=== PATIENT | male | born 1945 | race Caucasian/White ===

== ENCOUNTER 2016-11-03 04:55 | Inpatient (IN) ==
[2016-11-03] MEDS ORDERED: MAGNESIUM SULF RIDER 2 GM in PREMIX 1 EACH IV PRN ×2 (05:15→07:57)
[2016-11-03] MEDS ORDERED: MORPHINE 2 MG/1 ML SYRINGE IV PRN (05:15)
[2016-11-03] MEDS ORDERED: ONDANSETRON 4 MG/2 ML VIAL IV PRN (05:15)
[2016-11-03] MEDS ORDERED: MAGNESIUM SULF RIDER 4 GM in PREMIX 1 EACH IV PRN (05:15)
--- NOTE | 2016-11-03 05:22 | Emergency Department Note ---
I, Kasandra Mccarthy, am scribing for, and in the presence of, Tasha Dalton DO 05: 17. I, Tasha Dalton DO, personally performed the services described in this documentation, ascribed by Kasnadra Mccarthy in my presence, and it is both accurate and complete 520 . Arrival - Arrival Chief Complaint: Chest Pain Stated Complaint: chest pain ED Nursing Triage Note: C/C pt was having chest pain and went to [facility] for eval. Lab results pt had elevated troponin. No ST evelvation. Pt has not had any chest pain since being seen at [facility]. Pt had heart cath done and stent place 1 year ago. Pt was given Lovenox 100mg. Mode of Arrival: Stretcher Limitations: No Limitations Source: Patient - History of Present Illness HPI Narrative: Pt is a 71 y/o male that was transferred from [facility] for further evaluation of chest pain and an elevated troponin that happened around 10pm yesterday. Pt reports chest pain resolved after about 30 minutes of arriving at ED. He states chest pain came on about 8:30pm yesterday. Pt reports he has had similar previous issues where he went in for abdominal pain and ended up having to have a heart catherization with heart stent being placed in [place] [address] Kasper. He reports pain is similar but higher this time in the middle of his chest. Pt denies having a CT done or given nitroglycerin and prior facility but did have a chest X-ray and an EKG. Pt states chest pain was not pain just discomfort. No other complaints/pain in ED. Onset (ago): hour(s) Consistency: constant Severity: mild Severity scale (1-10): 2 Quality: other Allergies/Adverse Reactions: Allergies Allergy/AdvReac Type Severity Reaction Status Date / Time No Known Allergies Allergy Verified 11/03/16 05:11 Home Medications: Home Medications Medication Instructions Recorded Confirmed Type Aspirin [Ecotrin] 325 mg PO DAILY 11/04/15 11/04/15 History Atorvastatin [Lipitor] 20 mg PO BEDTIME 11/04/15 11/04/15 History Cyclobenzaprine [Flexeril] 10 mg PO TID PRN 11/04/15 11/04/15 History Glimepiride 4 mg PO DAILY 11/04/15 11/04/15 History Lisinopril 30 mg PO DAILY 11/04/15 11/04/15 History Pantoprazole Sodium 40 mg PO BID 11/04/15 11/04/15 History Pioglitazone [Actos] 15 mg PO DAILY 11/04/15 11/04/15 History Verapamil HCl [Verapamil ER Tab] 240 mg PO DAILY 11/04/15 11/04/15 History Clopidogrel [Plavix] 75 mg PO DAILY #90 tablet 11/05/15 Rx Review of System - Review of System 12 point system: reviewed and no additional remarkable complaints except as stated - Review of System Constitutional: Absent: chills, fever Respiratory: Absent: respiratory distress Cardiovascular: Present: chest pain Gastrointestinal: Present: abdominal pain. Absent: nausea, vomiting Musculoskeletal: Absent: arm pain, back pain, leg pain, neck pain Neurological: Absent: headache, numbness, confusion Psychiatric: Absent: anxiety Medical,Surgical,& Family Hx - Medical History Cardio: History of: Cerebrovascular Disease, CAD, Hypertension, Cardiovascular Problems (Stent 2015) No history of: CHF, [place] Psychological: History of: Anxiety Disorders Neurology: History of: Cerebrovascular Accident (2001 CVA) No history of: Seizures HEENT: History of: Eye Problem (glasses) Endocrine: History of: Diabetes Mellitus (NIDDM), Dyslipidemia No history of: Thyroid Disorder Respiratory: No history of: Asthma, COPD, Obstructive Sleep Apnea, Pulmonary Embolism Gastrointestinal: History of: GERD, GI Problems ("irritable bowel") No history of: Gastrointestinal Bleed Musculoskeletal: History of: Musculoskeletal Problems (arthritis) No history of: Amputation - Surgical History Cardiac Surgeries: Sugical HX of: Cardiac Catheterization (Stent 2015) Patient Denies: Cardiac Surgery HEENT Surgeries: Surgical HX of: Tonsilectomy & Adenoidectomy Abdominal Surgeries: Surgical HX of: Colonoscopy, EGD - Family History Family History: Reports;: Family Hypertension - Social History Smoking Status: Former smoker Frequency of Alcohol Use: None Type of Drug Use: None Exam Vital Signs: Vital Signs Temperature 97.1 F L 11/03/16 04:55 Pulse Rate 93 H 11/03/16 04:55 Respiratory Rate 17 11/03/16 04:55 Blood Pressure 145/79 11/03/16 04:55 O2 Sat by Pulse Oximetry 96 11/03/16 04:55 - General General appearance: alert, in no apparent distress, other (several teeth missing ) - Head Head exam: Present: atraumatic, normocephalic - Eye Eye exam: Present: PERRL, EOMI - ENT ENT exam: Present: mucous membranes moist. Absent: mucous membranes dry - Neck Neck exam: Present: full ROM. Absent: tenderness - Chest Chest inspection: Present: symmetric chest wall rise. Absent: tenderness - Respiratory Respiratory exam: Present: normal lung sounds bilaterally. Absent: respiratory distress - Cardiovascular Cardiovascular exam: Present: regular rate, normal rhythm, normal heart sounds - Abdominal Exam Abdominal exam: Present: soft, distention. Absent: tenderness - Extremities Exam Extremities exam: Present: full ROM. Absent: tenderness - Back Exam Back exam: Present: full ROM. Absent: tenderness - Neurological Exam Neurological exam: Present: alert, oriented X3, CN II-XII intact. Absent: motor sensory deficit - Psychiatric Psychiatric exam: Present: normal affect, normal mood - Skin Skin exam: Present: warm, dry Course Course Narrative: pt to be admitted to Dr Mckeon who accepts pt. Disposition Clinical Impression: Chest pain, Elevated troponin Case discussed with: patient Disposition: Still a Patient Condition: Stable Time of Disposition: 05:21
[2016-11-03] MEDS ORDERED: ASPIRIN CHEW 81 MG TABLET PO ONE (07:52)
[2016-11-03] MEDS ORDERED: METOPROLOL SUCCINATE XL 25 MG TABLET PO ONE (07:56)
[2016-11-03] MEDS ORDERED: POTASSIUM CHLORIDE RIDER 10 MEQ in PREMIX 1 EACH IV PRN (07:57)
[2016-11-03] MEDS: SODIUM CHLORIDE 0.9% 1,000 ML IV SCH ×2 (08:00→13:37)
--- NOTE | 2016-11-03 08:14 | Cardiology History & Physical ---
Assessment and Plan - Time spent with patient Time spent with patient: Greater than 30 minutes (1) NSTEMI (non-ST elevated myocardial infarction) Status: Acute Assessment and plan: See plan of care below [facility] Current Visit: Yes (2) CAD (coronary artery disease) Status: Chronic Assessment and plan: See plan of care below [facility] Current Visit: Yes Qualifiers: Coronary Disease-Associated Artery/Lesion type: [place] artery (3) S/P PCI mid-LAD Status: Chronic Assessment and plan: See plan of care below [facility] Current Visit: Yes (4) Hypertension Status: Chronic Assessment and plan: See plan of care below [facility] Current Visit: Yes (5) Dyslipidemia Status: Chronic Assessment and plan: See plan of care below [facility] Current Visit: Yes (6) Diabetes Status: Chronic Assessment and plan: See plan of care below [facility] Current Visit: Yes (7) Obesity (BMI 30.0-34.9) Status: Chronic Assessment and plan: See plan of care below [facility] Current Visit: Yes (8) Sleep disorder Status: Chronic Assessment and plan: See plan of care below [facility] Current Visit: Yes (9) Left carotid bruit Status: Chronic Assessment and plan: See plan of care below [facility] Current Visit: Yes History of Present Illness Chief complaint: NSTEMI History of present illness: Mr. Adria Self is a 71 year old male previously seen by Dr. Kasper. Risk factors include: age, known CAD, hypertension, hyperlipidemia, diabetes, Class I obesity, sedentary lifestyle. Patient required PCI to the mid LAD lesion with a drug-eluting stent 11/04/2015. He did not follow-up with Dr. Kasper in clinic but tells me he continues to take low-dose aspirin and Plavix daily. Last evening, around 830 p.m., patient began to experience a cramping sensation in his lower chest upper mid abdominal area. This waxed and waned for approximately one hour. Around 10 p.m., the discomfort would not go away. He felt as if he should be evaluated in the local emergency department ([facility]). He was evaluated and found to have marginally elevated troponin initially, abnormal EKG. He was transferred to our facility where he has been housed on our telemetry unit overnight. His troponin has elevated at 2.0 overnight. He is currently chest pain-free. He received 100 mg subcutaneous Lovenox at [facility] ER. He took his low-dose aspirin yesterday morning and Plavix yesterday morning. Patient reports that since he had his stent he felt relatively well. The past several months, he has experienced mild abdominal discomfort similar to what he felt when he required stenting. This is occurred 2 or 3 times and was brief lasting only a few seconds. Until last evening, he had not had this severe a discomfort. He can identify no aggravating factors nor any alleviating factors. He rates the discomfort as a 7 on a scale of 1- 10. He did have mild nausea associated with the discomfort last night but no diaphoresis or shortness of breath. The discomfort seemed to be contained to the lower chest upper abdominal area without radiation. I have discussed the case with Dr. Mckeon. Patient will be given to 81 mg chewable aspirins. Give her low-dose beta rosas. I'll also add Imdur this morning. We will get him ready for cardiac catheterization this morning. ASSESSMENT/PLAN: 1. NSTEMI - patient is being treated accordingly the usual protocol. He is being prepped for cardiac catheterization to be performed Dr. Ortiz Mckeon. This morning. Patient is chest pain-free at this time. 2. CAD - history of known coronary artery disease status post cardiac catheterization 11/04/[address] Kasper requiring PCI to mid LAD with LYNSEY. 3. HYPERTENSION - we'll add low-dose beta rosas this morning and incorporate his home meds. He does take lisinopril at home but given the fact that he is can have heart catheterization this morning, we'll hold Gil inhibitors. 4. DYSLIPIDEMIA - continue lipid-lowering agent. Lipid profile this morning as he is nothing by mouth. 5. DIABETES -we will cover with sliding scale insulin and have diabetic educators speak with him prior to discharge 6. ACUTE RENAL INSUFFICIENCY - creatinine was 1.5 at [facility]. This morning it has normalized. However, I will add Mucomyst orally and sodium bicarbonate infusion prior to heart cath 7. CLASS 1 OBESITY - lifestyle modifications have been discussed and continued reinforcement during hospitalization 8. SLEEP DISORDER - Class III Mallampati airway with greater than 44cm neck circumference, loud snoring and possible air hunger. Consult sleep medicine. 9. CAROTID BRUIT - carotid US this morning. Home Medications Medication Instructions Recorded Confirmed Type Aspirin [Ecotrin] 325 mg PO DAILY 11/04/15 11/03/16 History Atorvastatin [Lipitor] 20 mg PO BEDTIME 11/04/15 11/03/16 History Cyclobenzaprine [Flexeril] 10 mg PO TID PRN 11/04/15 11/03/16 History Glimepiride 4 mg PO DAILY 11/04/15 11/03/16 History Lisinopril 30 mg PO DAILY 11/04/15 11/03/16 History Pantoprazole Sodium 40 mg PO BID 11/04/15 11/03/16 History Pioglitazone [Actos] 15 mg PO DAILY 11/04/15 11/03/16 History Verapamil HCl [Verapamil ER Tab] 240 mg PO DAILY 11/04/15 11/03/16 History Clopidogrel [Plavix] 75 mg PO DAILY #90 tablet 11/05/15 11/03/16 Rx Allergies Allergy/AdvReac Type Severity Reaction Status Date / Time No Known Allergies Allergy Verified 11/03/16 05:11 Review of systems: REVIEW OF SYSTEMS: - Constitutional Constitutional: Present: Fatigue. Loud snoring, air hunger often been sleeping Absent: syncope, anorexia, night sweats - EENT Eyes: Absent: blurry vision, loss of vision, diplopia Ears: Absent: decreased hearing, ear pain, ear discharge - Cardiovascular Cardiovascular: Present: chest pain with exertion and at rest. Denies dyspnea on exertion, edema, palpitations. Absent: chest pain with deep breath, claudication, - Respiratory Respiratory: Denies cough. Absent: wheezing, hemoptysis, change in phlegm color - Gastrointestinal Gastrointestinal: Present: History of irritable bowel syndrome by report the currently not having difficulty with constipation or diarrhea. See HPI Absent: hematemesis, hematochezia, melena, change in bowel habits, nausea - Genitourinary Genitourinary: Absent: difficulty urinating, dysuria, urinary hesitancy, flank pain - Musculoskeletal Musculoskeletal: Present: back pain Absent: joint swelling, muscle cramps, muscle weakness - Neurological Neurological: Present: normal gait without frequent falls. Absent: dizziness, hemiparesis - Psychiatric Psychiatric: Absent: anxiety, depression, difficulty concentrating - Endocrine Endocrine: Present: fatigue. Absent: cold intolerance, heat intolerance, polyuria, polyphagia, polydipsia - Hematologic/Lymphatic Hematologic/Lymphatic: Present: easy bruising. Absent: easy bleeding, easy bruisability -Integumentary Integumentary: Absent: lesions, rashes, skin breakdown Medical,Surgical,& Family Hx - Medical History Cardio: History of: Cerebrovascular Disease, CAD, Hypertension, Cardiovascular Problems (Stent 2015) No history of: CHF, [place] Psychological: History of: Anxiety Disorders Neurology: History of: Cerebrovascular Accident (2001 CVA) No history of: Seizures HEENT: History of: Eye Problem (glasses) Endocrine: History of: Diabetes Mellitus (NIDDM), Dyslipidemia No history of: Thyroid Disorder Respiratory: No history of: Asthma, COPD, Obstructive Sleep Apnea, Pulmonary Embolism Gastrointestinal: History of: Esophageal Varices, GERD, GI Problems ("irritable bowel") No history of: Gastrointestinal Bleed Musculoskeletal: History of: Musculoskeletal Problems (arthritis) No history of: Amputation - Surgical History Cardiac Surgeries: Sugical HX of: Cardiac Catheterization (Stent 2015) Patient Denies: Cardiac Surgery Neurologic Surgeries: Patient denies: Neurologic Surgery HEENT Surgeries: Surgical HX of: Tonsilectomy & Adenoidectomy Abdominal Surgeries: Surgical HX of: Colonoscopy, EGD Reproductive Surgeries: Patient denies;: Genitourinary Surgery - Family History Family History: Reports;: Family Hypertension - Social History Smoking Status: Former smoker Have you smoked in the last 12 months: No Frequency of Alcohol Use: None Type of Drug Use: None Marital Status: Single Lives With:: Spouse Functional capacity: independent ambulation Cardiology Physical Exam - Constitutional Vitals: Vital Signs Temp Pulse Resp BP Pulse Ox 97.8 F 79 20 126/83 96 11/03/16 07:37 11/03/16 07:37 11/03/16 07:37 11/03/16 07:37 11/03/16 07:37 Intake and Output 11/02/16 11/03/16 11/03/16 23:59 07:59 15:59 Intake Total 0 / 0 Balance 0 / 0 Intake: Oral 0 / 0 Other: Weight 100.386 kg Patient Weight 11/03/16 23:59 Weight 100.386 kg Exam: General: Appears well with no apparent distress. Pleasant and cooperative. Appears comfortable. HEENT: PERRL, normocephalic, atraumatic. Mucous membranes moist. No jaundice noted. Conjunctiva moist and clear, sclerae anicteric. Class III Mallampati airway. >44cm neck circumference Neck: No JVD/HJR, no thyromegaly or lymphadenopathy noted. Left carotid bruit Cardiac: Regular rate and rhythm. No murmur rub or gallop. Lungs: Clear to auscultation without accessory muscle use to assist the respiratory pattern. Using oxygen intermittently Abdomen: Soft, bowel sounds normoactive. Nontender and nondistended. No abdominal bruit or thrill noted. No masses noted. Musculoskeletal: No fluid collection. Decreased range of motion is noted. Extremities: No clubbing, cyanosis noted. Trace BLE edema. Upper extremity pulses 2+. Lower extremity pulses 2+. Capillary refill less than 3 seconds. Skin: No unusual lesions or rashes. No skin breakdown appreciated. Neuro: Awake, alert and oriented 3. Moves all extremities well without hemiparesis or paralysis. No essential tremor is appreciated. Result/EKG - Labs Lab Results: I have reviewed the past 24 hour labs - Diagnostic Findings Procedure: Chest x-ray: pending - EKG EKG results: interpreted by me EKG shows: sinus rhythm Quality Measures - Stroke Symptom Onset Unknown: No
[2016-11-03] MEDS: PIOGLITAZONE 15 MG TABLET PO SCH (08:32)
[2016-11-03] MEDS: GLIMEPIRIDE 4 MG TABLET PO SCH (08:32)
[2016-11-03 08:46] LABS: Basophils # 0.1 10*3/uL (0.0-0.2); Basophils % 1.4 % (0.0-0.8); Eosinophils # 0.2 10*3/uL (0.0-0.87); Eosinophils % 2.8 % (0.00-10.9); Hematocrit 37.6 VOL% (42.0-52.0); Immature Granulocytes % 0.4 %; Immature Granulocytes Absolute 0.03 #; Lymphocytes # 1.8 10*3/uL (1.4-4.0); Lymphocytes % 23.7 % (21.2-54.2); Mean Corpuscular HGB Conc 34.6 GM/DL (32-36); Mean Corpuscular Hemoglobin 30 PG (27-34); Mean Corpuscular Volume 87.9 FL (87-102); Mean Platelet Volume 11.1 FL (9.6-12.0); Monocytes # 0.5 10*3/uL (0.11-0.8); Neutrophils % 64.7 % (38.7-73.9); Platelet Count 139 10*3/uL (130-400); Red Blood Count 4.28 10*6/uL (3.8-5.5); Red Cell Distribution Width 13.2 % (9.3-17.3); White Blood Count 7.8 10*3/uL (4.5-13.71)
--- NOTE | 2016-11-03 08:51 | Ultrasound Report ---
US carotid duplex BI Indication: Left carotid bruit. Comparison: None. Technique: Multiple longitudinal and transverse real-time sonographic images of the bilateral carotid arterial systems are obtained with grayscale, spectral, and color Doppler analysis. Findings: Peak systolic velocities within the right CCA, proximal ICA, and distal ICA are 83, 64, and 74 cm/s respectively. Peak systolic velocities within the left CCA, proximal ICA, and distal ICA are 72, 85, and 98 cm/s respectively. ICA/CCA ratios on the right and left are 0.9 and 1.4 respectively. Antegrade flow demonstrated within the bilateral vertebral arteries. Grayscale imaging demonstrates minimal bilateral atherosclerotic plaque. IMPRESSION: No convincing sonographic evidence of significant (50% or greater) narrowing of either cervical internal carotid artery. NASCET criteria utilized. PROCEDURE INTERPRETED AT [facility] DEPARTMENT OF RADIOLOGY Final Report Signed by: Dr Deshawn Short
--- NOTE | 2016-11-03 08:51 | XRay Report ---
Single view of the chest. Indication: Chest pain. Comparison: November 04, 2015. The heart is mildly enlarged. The pulmonary vasculature is normal. Calcified granulomas are present within the lung parenchyma. No consolidation, pneumothorax, or pleural effusion. Stable osseous structures. Impression: No acute abnormality. Mild cardiomegaly. Evidence of previous granulomatous disease. PROCEDURE INTERPRETED AT [facility] DEPARTMENT OF RADIOLOGY Final Report Signed by: Dr. Marija Cornell
[2016-11-03 08:54] LABS: INR 1.1; PT Patient Result 11.4 SECS
[2016-11-03] MEDS ORDERED: CLOPIDOGREL 75 MG TABLET PO SCH (09:00)
[2016-11-03] MEDS: ISOSORBIDE MONONITRATE 30 MG TABLET PO SCH (09:13)
[2016-11-03] MEDS: VERAPAMIL SR 240 MG TABLET PO SCH (09:13)
[2016-11-03] MEDS: ACETYLCYSTEINE 600 MG CAPSULE PO SCH ×3 (09:13→21:14)
[2016-11-03] MEDS: PANTOPRAZOLE 40 MG TABLET PO SCH ×2 (09:14→21:16)
[2016-11-03 09:24] LABS: Calcium 8.4 MG/DL (8.5-10.1); Magnesium 2.5 MG/DL (1.8-2.4); Osmolality,Calculated 285.3 MOS/KG (273-304); Potassium 4.3 MMOL/L (3.5-5.1); Risk Ratio 3.43
[2016-11-03] MEDS ORDERED: DIAZEPAM 5 MG TABLET PO ONE (10:00)
[2016-11-03] MEDS: SODIUM BICARB INJ 50 MEQ in SODIUM CHLORIDE 0.45% 1,000 ML IV SCH ×2 (10:00→21:16)
[2016-11-03] MEDS ORDERED: diphenhydrAMINE CAP 25 MG CAPSULE PO ONE (10:00)
[2016-11-03] MEDS ORDERED: LIDOCAINE 1%/EPI INJ 20 ML VIAL ONE ×2 (10:28→10:38)
[2016-11-03] MEDS ORDERED: HEPARIN/NACL 0.9% 2 UNITS/ML 0 ML IV ONE (10:28)
[2016-11-03] MEDS ORDERED: HEPARIN/NACL 0.9% 2 UNITS/ML 1,000 ML IV ONE (10:38)
[2016-11-03] MEDS ORDERED: fentaNYL 100 MCG/2 ML VIAL ONE (10:42)
[2016-11-03] MEDS ORDERED: MIDAZOLAM 2 MG/2 ML VIAL ONE (10:42)
--- NOTE | 2016-11-03 10:55 | History and Physical Update ---
Sedation H&P Update - History and Physical H&P was reviewed, the patient examined and there: are no changes in the patients condition since last H&P was completed. - Physical Exam Mental Status: alert and oriented Heart: regular rate and rhythm Lung: clear to auscultation Abdomen: within normal limits Vitals: within normal limits - Sedation Plan for Sedation: moderate Patient Consent: Procedure disscussed with patient and patinet has consented., Risks and benefits were discussed with patient,including infection,, bleeding, injury to surrounding structures, seizure, temporary nerve, Patient understands and accepts potential risks/benefits and agrees to, proceed. ASA Class: IV Airway Assessment: Class III: Soft palate, base of uvula visible
[2016-11-03] MEDS ORDERED: ENOXAPARIN 60 MG/0.6 ML SYRINGE ONE (11:05)
[2016-11-03] MEDS ORDERED: EPTIFIBATIDE 20,000 MCG/10 ML VIAL ONE (11:13)
[2016-11-03] MEDS ORDERED: EPTIFIBATIDE 75 MG/100 ML BOTTLE IV ONE (11:14)
[2016-11-03] MEDS ORDERED: EPTIFIBATIDE 75 MG/100 ML BOTTLE IV SCH (11:19)
--- NOTE | 2016-11-03 11:20 | EKG Report ---
Stationary ECG Study [facility] Test Date: 11/03/2016 4:59:13 AM Pat Name: ANTONY NAGY Department: Room: 283 Gender: M Will Call Clerk: : 1945 Requested by: Tasha Dalton Order Number: [id number] Roxy MD: BERNARDO WEBB Intervals [place] Rate: 93 P: 45 [place]: 177 QRS: 63 QRSD: 101 T: 51 QT: 383 QTc: 434 Interpretive Statements SINUS RHYTHM Electronically Signed On 11-04-16 09:47:07 [employer] by BERNARDO WEBB [email or web address]
[2016-11-03] MEDS ORDERED: TICAGRELOR 90 MG TABLET ONE (11:53)
--- NOTE | 2016-11-03 12:31 | Cardiac Catheterization ---
Date of Procedure:: 11/03/16 Pre-op Diagnosis: Non-ST elevation myocardial infarction Post-op diagnosis: same Procedure: Summary: 71-year-old man who has a history of coronary disease status post percutaneous intervention done in October 2015. He presents now with an episode of chest discomfort and troponin elevations into the 2.0 range. He is for diagnostic evaluation and intervention if indicated Description of procedure: Procedure performed: 1: Left heart catheterization 2: Coronary angiography 3: Left ventriculography 4: Percutaneous intervention for in-stent restenosis of the LAD with a 2.5 x 12 mm Zions drug-eluting stent placed inside the prior stented area with a good angiographic result 5: Unsuccessful wiring of a branch diagonal for continued medical therapy 6: Percutaneous intervention of the proximal right coronary artery with a 3.0 x 15 mm Zions drug-eluting stent with a good angiographic result 7: Right femoral sheath angiography 8: Angio-Seal closure right femoral arteriotomy site After obtaining informed consent the patient was brought to the [facility] where the right groin was prepped and draped in usual sterile manner. Using intravenous sedation and local anesthesia needle was inserted right femoral artery without difficulty and a 6 [place] sheath was positioned without difficulty. A left heart catheterization was undertaken using first a Lissette left diagnostic catheter followed by an [facility] right coronary catheter. OF inflations were done under fluoroscopic control with exchanges over a guidewire. Multiple angiograms were obtained in multiple angulations. After adequate angiograms were obtained this catheter was withdrawn and a pigtail ventriculographic catheter was advanced over a guidewire to fluoroscopic control the ascending aorta where catheter was passed across the aortic valve and ventriculography was obtained in the BENDER projection. After completion of ventriculography this catheter was pulled back from the ventricle to the aorta under hemodynamic monitoring and removed. At this point we elected to proceed with percutaneous intervention of both the right coronary after percutaneous intervention of the restenosis of the LAD stent. A Lissette left guide was advanced over a guidewire under fluoroscopic control the ascending aorta where it was positioned at the ostium of the left main coronary artery. An 014 BMW wire was advanced to the distal LAD and a 2.0 x 12 mm mini tract balloon was advanced to the area stenosis inflated multiple times to 12 michaela with good resolution of the in-stent restenosis. There was a small to moderate-sized diagonal branch which arose from this area which we felt would likely be sacrificed to open the LAD it was open at the end of the procedure but had a very tight ostial stenosis and we attempted wiring without success. After ballooning this area a Zions Alpine 2.5 mm x 12 mm stent was advanced to the area of restenosis and deployed to 14 michaela. There was a good angiographic result with ANTONELLA grade 3 flow down the LAD. Again there was a subtotal diagonal which we're unable to wire. At this point the BMW guidewire was removed from the distal LAD and all deliver balloons and wires removed from the guide. The guide was then removed from the sheath. At this point we elected to proceed with PCI of the proximal right coronary artery. A Lissette right guide was advanced over a guidewire to fluoroscopic control the ascending aorta where the right coronary was engaged. An 014 BMW wire was advanced to the distal right coronary artery and a 2.5 x 12 mm Lombardi tract balloon was advanced to the area of stenosis and a single inflation was taken to 14 michaela. This balloon was then removed and next a Zions Alpine 3.0 x 15 mm stent was advanced to the area stenosis and deployed with 2 inflations to a maximum of 14 michaela. After completion of balloon inflation there appeared to be a good angiographic result with ANTONELLA grade 3 flow down the vessel. No evidence of significant dissection or compromised flow can be noted. At this point the delivery balloon was removed from the coronary and the guidewire was pulled back into the guide. Repeat angiography confirmed a good result. At this point the patient underwent right femoral sheath angiography which demonstrated anatomy appropriate for Angio-Seal closure. This was accomplished without difficulty and good hemostasis was obtained. Hemodynamics: Please see the accompanying hemodynamic data sheet Coronary angiography Left coronary artery: Left main coronary artery is well-developed and free of significant obstructing lesions. The circumflex coronary is a large nondominant vessel with possesses no significant lesions to its course. The branches of the circumflex likewise are free of significant obstructing lesions. There is a very large proximal marginal branch which is free of significant obstructing lesions. Left anterior descending coronary artery is large vessel extends around the apex of the ventricle. In the midportion of the LAD is an intracoronary stent which is noted to have a 99% area of stenosis in its midportion. This is at the area of the takeoff of a small diagonal branch of the LAD. There is noted be some distal vessel disease probably measuring in the 70-80% range at the apical portion of the LAD. The remainder of the LAD and its branches appeared to be free of significant obstructing lesions. Right coronary artery: The right coronary is a large dominant vessel with possesses an area of haziness 95% stenosis in its proximal portion. Remainder the right coronary artery is free of significant obstructing lesions. The branches of the right coronary likewise are free of significant obstructing lesions. Left ventriculography: After injection of contrast left ventricle is noted be of normal size with distal anterior and apical hypokinesis. Overall ejection fraction measures in the 50-55% range. Mitral and aortic structures appear normal by ventriculography. Percutaneous intervention: LAD intervention: After the above described procedure the lesion went from 99% stenotic to roughly 0% stenotic post stent deployment Again there was noted to be a small to moderate-sized diagonal which arose from this area which was compromised with stenting and we're unable to wire this vessel. The patient will be treated for this medically. Right coronary artery intervention: Right coronary artery is noted have 0% residual post the above described procedure. There was ANTONELLA grade 3 flow down the vessel noted end procedure. Right femoral sheath angiography: After injection of contrast right femoral arterial sheath and appears to enter above the bifurcation. No significant disease of the distal iliac, common femoral, or bifurcation be noted based on this limited angiographic study. Conclusions: Successful percutaneous intervention of the restenotic segment of the LAD stent with a 2.5 x 12 mm Zions drug-eluting stent with a good angiographic result Successful percutaneous intervention the proximal right coronary artery with a 3.0 x 15 mm Zions drug-eluting stent with a good angiographic result Ejection fraction 50-55% with distal anterior and apical hypokinesis similar to previously Angio-Seal closure right femoral arteriotomy site "[place]" of a small to moderate-sized diagonal as noted above for medical management The patient presents with a non-ST elevation myocardial infarction. He is undergone stenting of 2 vessels as outlined above with a good angiographic result. He is clinically stable and will be watched for evidence of bleeding or recurring ischemia. Our findings have been reviewed with the patient. Surgeon / Physician: Brody Mckeon Estimated blood loss: minimal Specimens: none sent Condition: stable - Medications / Follow-up
--- NOTE | 2016-11-03 12:45 | EKG Report ---
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
[2016-11-03] MEDS: CYCLOBENZAPRINE 10 MG TABLET PO PRN ×2 (13:41→21:17)
--- NOTE | 2016-11-03 16:10 | Sleep Medicine Consult ---
Assessment and Plan (1) Unspecified sleep apnea Status: Acute Assessment and plan: This patient does have physical findings of the upper airway and neck with a history of snoring. These findings certainly in the face of his chronic health issues are concerning for sleep apnea. We will initiate HST evaluation tonight since he is comfortable on room air. If this is negative, I will recommend in lab polysomnography. False-negative rate for HST can be as high as 17% and in patients with high pretest probability for sleep apnea with negative HST, polysomnography is indicated. Current Visit: Yes (2) CAD (coronary artery disease) Status: Chronic Assessment and plan: Patients with coronary artery disease who require intervention and have untreated obstructive sleep apnea, or much more likely that required re- intervention. The [place] data from Lancet 2005 also proved significant reduction in the risk of fatal and nonfatal cardiac events in patients with severe obstructive sleep apnea compliant with CPAP, in comparison with those noncompliant with CPAP for severe sleep apnea. Current Visit: Yes Qualifiers: Coronary Disease-Associated Artery/Lesion type: [place] artery (3) Diabetes Status: Chronic Assessment and plan: The prevalence rate for obstructive sleep apnea in patients with type 2 diabetes can be as high as 86%. Those patients with moderate to severe obstructive sleep apnea are at a greater risk for diabetic nephropathy and neuropathy. Compliance with CPAP therapy for these patients can lead to improvement in glycemic control and improvement in insulin sensitivity. Current Visit: Yes (4) Hypertension Status: Chronic Assessment and plan: The prevalence rate for obstructive sleep apnea patients with hypertension is 35 %. That rate can be as high as 80% in patients who require 4 or more medications for blood pressure control. Current Visit: Yes History of Present Illness Chief complaint: sleep apnea History of present illness: Mr. Adria Self is a 71 year old male admitted with chest pain and found to have non-ST elevation myocardial infarction. He has a prior history of coronary artery disease and had a stent placed a year ago. He went to the labor specialist and had re-staining of his original stent and had another stent placed. Both his LAD and RCA underwent intervention. He did have mild cardiomyopathy but his ejection fraction was 50-55%. Sleep medicine was consulted. He does have a history of snoring but has never been told that he stops breathing during his sleep. He awakens 1-2 times a night to urinate. He usually retires between and 12 and then awakens and next day between 7 and 830. He states that he usually feels refreshed upon awakening. He will occasionally fall asleep while lying down couch watching TV. He lives alone and is single and . His past medical history is notable for his coronary disease, hypertension, and type 2 diabetes. Home Medications Medication Instructions Recorded Confirmed Type Aspirin [Ecotrin] 325 mg PO DAILY 11/04/15 11/03/16 History Atorvastatin [Lipitor] 20 mg PO BEDTIME 11/04/15 11/03/16 History Cyclobenzaprine [Flexeril] 10 mg PO TID PRN 11/04/15 11/03/16 History Glimepiride 4 mg PO DAILY 11/04/15 11/03/16 History Lisinopril 30 mg PO DAILY 11/04/15 11/03/16 History Pantoprazole Sodium 40 mg PO BID 11/04/15 11/03/16 History Pioglitazone [Actos] 15 mg PO DAILY 11/04/15 11/03/16 History Verapamil HCl [Verapamil ER Tab] 240 mg PO DAILY 11/04/15 11/03/16 History Clopidogrel [Plavix] 75 mg PO DAILY #90 tablet 11/05/15 11/03/16 Rx Allergies Allergy/AdvReac Type Severity Reaction Status Date / Time No Known Allergies Allergy Verified 11/03/16 05:11 Review of systems: Otherwise unremarkable other than as stated in HPI from sleep standpoint. Exam (Pulmonay) H&P - Constitutional Vitals: Period Temp Pulse Resp BP Sys/Alcocer Pulse Ox Last 24 Hr 73-83 18-20 96-113/61-67 92-99 Exam: Patient is alert and responsive in no acute distress. Pupils equal round reactive to light and accommodation. Extraocular movements intact. Oropharynx with class IV Mallampati exam. Neck large supple without adenopathy or thyromegaly. No supraclavicular adenopathy is noted. Chest was symmetrical breath sounds without focal wheezes, rhonchi, or rales. Cardiac exam reveals a regular rhythm without murmur or gallop. Abdomen obese nontender without palpable hepatosplenomegaly or mass. Extremities are without clubbing cyanosis or edema. Neurologically, he is grossly intact. Room air O2 sats are 97%. Medical,Surgical,& Family Hx - Medical History Cardio: History of: Cerebrovascular Disease, CAD, Hypertension, Cardiovascular Problems (Stent 2015) No history of: CHF, [place] Psychological: History of: Anxiety Disorders Neurology: History of: Cerebrovascular Accident (2001 CVA) No history of: Seizures HEENT: History of: Eye Problem (glasses) Endocrine: History of: Diabetes Mellitus (NIDDM), Dyslipidemia No history of: Thyroid Disorder Respiratory: No history of: Asthma, COPD, Obstructive Sleep Apnea, Pulmonary Embolism Gastrointestinal: History of: Esophageal Varices, GERD, GI Problems ("irritable bowel") No history of: Gastrointestinal Bleed Musculoskeletal: History of: Musculoskeletal Problems (arthritis) No history of: Amputation - Surgical History Cardiac Surgeries: Sugical HX of: Cardiac Catheterization (Stent 2015) Patient Denies: Cardiac Surgery Neurologic Surgeries: Patient denies: Neurologic Surgery HEENT Surgeries: Surgical HX of: Tonsilectomy & Adenoidectomy Abdominal Surgeries: Surgical HX of: Colonoscopy, EGD Reproductive Surgeries: Patient denies;: Genitourinary Surgery - Family History Family History: Reports;: Family Hypertension - Social History Smoking Status: Former smoker Frequency of Alcohol Use: None Type of Drug Use: None Marital Status: Lives With:: Alone Results - Labs CBC & BMP: 11/03/16 08:32 11/03/16 08:32 Lab Results: I have reviewed the past 24 hour labs Labs: Laboratory evaluation did not include TSH level. Quality Measures - VTE Contraindication to Pharmacological VTE Prophylaxis: High Risk of Bleeding - Stroke Symptom Onset Unknown: No Specialty Discharge - Follow Up or Referrals
[2016-11-03] MEDS ORDERED: ATORVASTATIN 20 MG TABLET PO SCH (21:00)
[2016-11-04 05:16] LABS: Basophils # 0.1 10*3/uL (0.0-0.2); Eosinophils # 0.6 10*3/uL (0.0-0.87); Eosinophils % 7.5 % (0.00-10.9); Hematocrit 33.6 VOL% (42.0-52.0); Hemoglobin 11.5 GM/DL (14.0-18.0); Immature Granulocytes % 0.4 %; Immature Granulocytes Absolute 0.03 #; Lymphocytes # 1.8 10*3/uL (1.4-4.0); Lymphocytes % 24.6 % (21.2-54.2); Mean Corpuscular HGB Conc 34.2 GM/DL (32-36); Mean Corpuscular Hemoglobin 30 PG (27-34); Mean Platelet Volume 10.9 FL (9.6-12.0); Monocytes # 0.6 10*3/uL (0.11-0.8); Monocytes % 8.4 % (1.7-12.7); Neutrophils # 4.3 10*3/uL (1.4-7.4); Neutrophils % 58.1 % (38.7-73.9); Platelet Count 113 10*3/uL (130-400); Red Blood Count 3.82 10*6/uL (3.8-5.5); Red Cell Distribution Width 13.3 % (9.3-17.3); White Blood Count 7.4 10*3/uL (4.5-13.71)
[2016-11-04 05:52] LABS: Calcium 8.1 MG/DL (8.5-10.1); Osmolality,Calculated 284.1 MOS/KG (273-304); Potassium 4.2 MMOL/L (3.5-5.1)
[2016-11-04] MEDS: SODIUM BICARB INJ 50 MEQ in SODIUM CHLORIDE 0.45% 1,000 ML IV SCH (06:54)
--- NOTE | 2016-11-04 07:28 | Discharge Summary ---
Hospital Course - Hospital Course Hospital Course: 71-year-old white male with a history of coronary disease status post percutaneous intervention of an LAD/diagonal done one year ago. Now presents with a non-ST elevation myocardial infarction. He underwent cardiac catheterization which revealed restenosis of the prior stent site which was treated successfully with a 2.5 x 12 mm science stent. The small moderate- sized diagonal was jailed and was open with ANTONELLA grade 2 flow down the vessel. Patient also had progressed to the proximal right coronary stenosis which was treated successfully with intracoronary stent placement. A 3.0 x 15 mm science stent was placed in the proximal right with a good angiographic result. Patient is now stable post procedure ambulating without difficulty ready for discharge to see me Dr. Kasper back in the office in 2 weeks. He has been fully reviewed related to activities medications and precautions. Specialty Discharge - Follow Up or Referrals Discharge Plan - Discharge Data Disposition: Disch To Home/Self Care Condition at Discharge: Stable Discharge Diet: heart healthy Activity: other (as outlined on the post PCI instruction sheet) - Discharge Medications New Ticagrelor [Brilinta] 90 mg PO BID #60 tablet Aspirin EC Tab 81 mg PO DAILY #30 tablet Nitroglycerin Sl Tab [Nitrostat] 0.4 mg SL Q5M PRN #100 tablet PRN Reason: Chest Pain Continue Verapamil HCl [Verapamil ER Tab] 240 mg PO DAILY Cyclobenzaprine [Flexeril] 10 mg PO TID PRN PRN Reason: Pain Lisinopril 30 mg PO DAILY Pantoprazole Sodium 40 mg PO BID Atorvastatin [Lipitor] 20 mg PO BEDTIME Pioglitazone [Actos] 15 mg PO DAILY Glimepiride 4 mg PO DAILY Discontinued Aspirin [Ecotrin] 325 mg PO DAILY Clopidogrel [Plavix] 75 mg PO DAILY #90 tablet - Follow Up or Referral Follow Up: Galen Kasper MD [Physician] - 2 Weeks (ECG CBC BMP on RTC) - Forms/Instructions Instructions: Coronary Artery Disease (GEN), Heart Healthy Diet (GEN), Coronary Intravascular Stent Placement, Delivery Room Clerk (GEN) Exam - Constitutional Vitals: Period Temp Pulse Resp BP Sys/Alcocer Pulse Ox Last 24 Hr 97.7 F-98.0 F 71-83 13-20 96-156/61-86 92-99 Discharge Results Procedures and tests throughout hospitalization: Pending Orders 11/03/16 08:59 CL heart Routine 11/03/16 12:30 MRSA Surveillence, Inf Control Routine Labs on day of discharge: Labs from last 24 hours 11/04/16 11/04/16 11/04/16 05:02 05:02 05:02 WBC RBC Hgb Hct MCV MCH MCHC RDW Plt Count MPV Neut % (Auto) Lymph % (Auto) [place] % (Auto) Eos % (Auto) Baso % (Auto) Neut # (Auto) Lymph # (Auto) [place] # (Auto) Eos # (Auto) Baso # (Auto) Immature Gran % Nucleated RBC % Immature Gran # Nucleated RBCs # Sodium 142 Potassium 4.2 Chloride 106 Carbon Dioxide 27 Anion Gap 13.2 BUN 14 Creatinine 1.40 H GFR Calculation 63 BUN/Creatinine Ratio 10.00 Glucose 118 H POC Glucose Calculated Osmolality 284.1 Calcium 8.1 L Total Creatine Kinase 98 CK-MB (CK-2) 4.0 H Troponin I 1.510 H D TSH 3rd Generation 1.740 11/04/16 11/03/16 11/03/16 05:02 21:22 20:35 WBC 7.4 RBC 3.82 Hgb 11.5 L Hct 33.6 L MCV 88.0 MCH 30 MCHC 34.2 RDW 13.3 Plt Count 113 L MPV 10.9 Neut % (Auto) 58.1 Lymph % (Auto) 24.6 [place] % (Auto) 8.4 Eos % (Auto) 7.5 Baso % (Auto) 1.0 H Neut # (Auto) 4.3 Lymph # (Auto) 1.8 [place] # (Auto) 0.6 Eos # (Auto) 0.6 Baso # (Auto) 0.1 Immature Gran % 0.4 Nucleated RBC % 0.0 Immature Gran # 0.03 Nucleated RBCs # 0.00 Sodium Potassium Chloride Carbon Dioxide Anion Gap BUN Creatinine GFR Calculation BUN/Creatinine Ratio Glucose POC Glucose 158 H Calculated Osmolality Calcium Total Creatine Kinase CK-MB (CK-2) Troponin I 2.370 H D TSH 3rd Generation 11/03/16 11/03/16 16:22 12:49 WBC RBC Hgb Hct MCV MCH MCHC RDW Plt Count MPV Neut % (Auto) Lymph % (Auto) [place] % (Auto) Eos % (Auto) Baso % (Auto) Neut # (Auto) Lymph # (Auto) [place] # (Auto) Eos # (Auto) Baso # (Auto) Immature Gran % Nucleated RBC % Immature Gran # Nucleated RBCs # Sodium Potassium Chloride Carbon Dioxide Anion Gap BUN Creatinine GFR Calculation BUN/Creatinine Ratio Glucose POC Glucose 189 H Calculated Osmolality Calcium Total Creatine Kinase CK-MB (CK-2) Troponin I 3.380 H D TSH 3rd Generation DS: Provider Date of admission: 11/03/16 08:38 Primary care physician: . No PCP Attending physician on admission: Brody Mckeon MD Consults: 11/03/16 08:57 Consult to Sleep Center [CONS] Routine Reason for Sleep Center: Sleep Center Physician Consult Comment: sleep disorder. (Having LHC today prob around noon) 11/03/16 12:32 Consult to Cardiac Rehabilitation [CONS] Routine Reason for Cardiac Rehabilitation: Risk Factor Modification Discharging clinician: Brody Mckeon MD
--- NOTE | 2016-11-04 07:32 | EKG Report ---
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
--- NOTE | 2016-11-04 08:17 | Sleep Medicine Progress Note ---
Assessment and Plan (1) Unspecified sleep apnea Status: Acute Assessment and plan: HST evaluation was equivocal with poor sleep. Outpatient polysomnography recommended to be done as soon as possible given his risk factors and coronary artery disease. He did have a normal [place] sleepiness score but had up elevated stop bang score of 5. He has physical features and medical comorbidities that could be strongly associated with and exacerbated by untreated sleep apnea Current Visit: Yes (2) CAD (coronary artery disease) Status: Chronic Current Visit: Yes Qualifiers: Coronary Disease-Associated Artery/Lesion type: [place] artery (3) Diabetes Status: Chronic Current Visit: Yes (4) Hypertension Status: Chronic Current Visit: Yes Sleep Medicine Subjective Interval history: Patient underwent HST evaluation last night. He slept poorly. His study revealed borderline findings with the respiratory index of about 5. He began to have some desaturations toward the very end of the study and may have been approaching or achieving REM sleep during that time. In these borderline findings, I recommend polysomnography. Given his second coronary intervention in the past year or so, I recommend this to be done soon as we can get him in the sleep lab. This patient has multivessel coronary artery disease and will be at risk for recurrent events if he does have untreated sleep apnea. Exam (Progress Note) - Constitutional Vitals: Period Temp Pulse Resp BP Sys/Alcocer Pulse Ox Last 24 Hr 97.7 F-98.0 F 71-83 13-20 96-156/61-86 92-99 Exam: He is alert and responsive in no acute distress. Pupils equal round reactive to light and accommodation. Extraocular movements intact. Oropharynx with class IV Mallampati exam chest was symmetrical breath sounds without wheezes rhonchi or rales. Cardiac exam reveals a regular rhythm without murmur or gallop. Abdomen soft nontender without palpable hepatosplenomegaly or mass. Extremities are without increased edema. Neurologically, grossly intact. Results - Labs CBC & BMP: 11/04/16 05:02 11/04/16 05:02 Labs: TSH was reviewed and was within normal limits. Specialty Discharge - Follow Up or Referrals Follow up with: Galen Kasper MD [Physician] - 2 Weeks (ECG CBC BMP on RTC)
[2016-11-04] MEDS ORDERED: TICAGRELOR 90 MG TABLET PO SCH (09:00)
[2016-11-04] MEDS ORDERED: ASPIRIN EC 81 MG TABLET PO SCH (09:00)
[2016-11-04] MEDS: ISOSORBIDE MONONITRATE 30 MG TABLET PO SCH (09:28)
[2016-11-04] MEDS: GLIMEPIRIDE 4 MG TABLET PO SCH (09:28)
[2016-11-04] MEDS: PIOGLITAZONE 15 MG TABLET PO SCH (09:28)
[2016-11-04] MEDS: PANTOPRAZOLE 40 MG TABLET PO SCH (09:28)
[2016-11-04] MEDS: ACETYLCYSTEINE 600 MG CAPSULE PO SCH (09:28)
[2016-11-04] MEDS: VERAPAMIL SR 240 MG TABLET PO SCH (09:31)
[2016-11-04 15:19] VITALS: BP 128/61
--- NOTE | 2016-11-04 20:48 | ECHO Report ---
Arsh Covington Jr Exam Date: 11/03/2016 13:53 Referring Physician: Technologist: Genet Mckeon RDCS Age: 71 Ht (in): Wt (lb): Gender: M Exam Location: [facility] Echo Indications: Chest pain, unspecified, Elevated troponin, s/p CATH BP: / HR: Rhythm: Sinus Technical Quality: Poor IMPRESSIONS Normal LV systolic function, ejection fraction 55%. Poor endocardial resolution prohibits regional wall motion assessment. Grade 1/4 diastolic dysfunction. Mild left atrial enlargement. Mild right atrial enlargement. Aortic sclerosis without significant stenosis, mild aortic regurgitation. MEASUREMENTS (Male / Female) Normal Values 2D ECHO LV Diastolic Diameter PLAX 5.0 cm 4.2 - 5.9 / 3.9 - 5.3 cm LV Systolic Diameter PLAX 3.5 cm LV Fractional Shortening PLAX 30.7 % IVS Diastolic Thickness 1.0 cm 0.6 - 1.0 / 0.6 - 0.9 cm LVPW Diastolic Thickness 1.0 cm 0.6 - 1.0 / 0.6 - 0.9 cm RV Internal Dim ED PLAX 3.2 cm Aortic Root Diameter 3.0 cm LA Systolic Diameter LX 4.9 cm 3.0 - 4.0 / 2.7 - 3.8 cm FINDINGS Left Ventricle Normal left ventricular cavity size. Normal left ventricular wall thickness. Left ventricular ejection fraction is estimated at 55%. Right Ventricle The right ventricle is mildly dilated. Right Atrium The right atrium is mildly enlarged. Left Atrium Mild atrial enlargement in apical view (elongated LA). Mitral Valve Mild mitral annular and leaflet calcification with mild mitral regurgitation. Aortic Valve Aortic valve calcification. Mean gradient 11 mmHg, BROOKS 1.3 cm. Mild aortic valve regurgitation. Tricuspid Valve Morphologically normal tricuspid valve without significant stenosis or regurgitation. Pulmonary artery systolic pressure is normal. Pulmonic Valve Morphologically normal pulmonic valve without significant stenosis. There is no pulmonic regurgitation. Pericardium Normal pericardium without effusion. Aorta Normal ascending aorta dimension. Hayde Barahona MD (Electronically Signed) Final Date: 04 November 2016 20:47
== END 2016-11-04 15:38 | disposition home or self-care (01) | DRG 247 ==
LOC: EDBD → EDUNIT# → N.EDINP 04:55 → N.ED 04:55 → N.TELEN 05:41 → N.CC 12:06
PROVIDERS: ADMIT Internal Medicine Interventional Cardiology; ATTEND Internal Medicine Interventional Cardiology
PROC: CLCCHCL (ICD-10-PCS; 2016-11-03 13:45)

== ENCOUNTER 2019-07-28 23:55 | Inpatient (IN) ==
[2019-07-29] MEDS ORDERED: hydrALAZINE 20 MG/1 ML VIAL IV ONE (02:26)
[2019-07-29] MEDS ORDERED: guaiFENesin/DM ER 600-30 MG TABLET PO PRN (02:28)
[2019-07-29] MEDS ORDERED: traZODone 50 MG TABLET PO PRN (02:28)
[2019-07-29] MEDS ORDERED: ACETAMINOPHEN 325 MG TABLET PO PRN (02:28)
[2019-07-29] MEDS ORDERED: NICOTINE 21 MG/24 HR PATCH TRANSDERM PRN (02:28)
[2019-07-29] MEDS ORDERED: BISACODYL 5 MG TABLET PO PRN (02:28)
[2019-07-29] MEDS ORDERED: DEXTROSE 50% 25 GM/50 ML VIAL IV PRN (02:28)
[2019-07-29] MEDS ORDERED: GLUCAGON 1 MG VIAL IM PRN (02:28)
[2019-07-29] MEDS ORDERED: ONDANSETRON 4 MG/2 ML VIAL IV PRN (02:28)
[2019-07-29] MEDS ORDERED: diphenhydrAMINE CAP 25 MG CAPSULE PO PRN (02:28)
[2019-07-29] MEDS ORDERED: MORPHINE 4 MG/1 ML VIAL IV PRN (02:28)
[2019-07-29] MEDS ORDERED: hydrALAZINE 20 MG/1 ML VIAL IV PRN (02:28)
[2019-07-29] MEDS ORDERED: NITROGLYCERIN SL 0.4 MG TABLET SL PRN (02:31)
[2019-07-29] MEDS ORDERED: ALUM/MAG/SIMETH/LIDO VISC 1:1 30 ML BOTTLE PO ONE (03:51)
[2019-07-29 04:44] LABS: Basophils # 0.1 10*3/uL (0.0-0.2); Eosinophils # 0.2 10*3/uL (0.0-0.87); Eosinophils % 3.6 % (0.00-10.9); Hematocrit 36.1 VOL% (42.0-52.0); Hemoglobin 11.9 GM/DL (14.0-18.0); Immature Granulocytes % 0.5 %; Immature Granulocytes Absolute 0.03 #; Lymphocytes # 1.2 10*3/uL (1.4-4.0); Lymphocytes % 20.4 % (21.2-54.2); Monocytes % 8.7 % (1.7-12.7); Neutrophils % 65.8 % (38.7-73.9); Platelet Count 139 T/CUMM (130-400); Red Cell Distribution Width 14.1 % (9.3-17.3); White Blood Count 6.1 T/CUMM (4-12)
[2019-07-29 05:15] LABS: Albumin 3.7 G/DL (3.4-5.0); Bilirubin,Total 1.2 MG/DL (0.2-1.0); Calcium 9.1 MG/DL (8.5-10.1); Osmolality,Calculated 283.3 MOS/KG (273-304); Risk Ratio 2.85; Thyroid Stimulating Hormone 1.96 uIU/ml (0.358-3.74); Total Protein 7.2 G/DL (6.4-8.3); VLDL CHOLESTEROL 25.2 MG/DL
[2019-07-29] MEDS: ENOXAPARIN 100 MG/ML SYRINGE SUBCUT SCH ×2 (06:43→19:02)
[2019-07-29 08:40] LABS: CKMB % 10.8 %
[2019-07-29] MEDS: INSULIN REGULAR 100 UNIT/ML SUBCUT SCH ×4 (08:47→20:55)
[2019-07-29] MEDS: PANTOPRAZOLE 40 MG TABLET PO SCH (09:31)
[2019-07-29] MEDS: ASPIRIN EC 81 MG TABLET PO SCH (09:31)
[2019-07-29] MEDS: CLOPIDOGREL 75 MG TABLET PO SCH (09:31)
[2019-07-29] MEDS: FUROSEMIDE 20 MG TABLET PO SCH (12:28)
[2019-07-29] MEDS: amLODIPine 5 MG TABLET PO SCH (16:15)
[2019-07-29] MEDS: ATORVASTATIN 40 MG TABLET PO SCH (20:54)
[2019-07-29] MEDS: LISINOPRIL 20 MG TABLET PO SCH (20:54)
[2019-07-29] MEDS: carvediloL 25 MG TABLET PO SCH (20:54)
[2019-07-29 22:10] LABS: Apearance,Urine CLEAR (Clear); Bacteria,Urine Occasional /HPF (Few); Bilirubin,Urine Negative (Negative); Blood, Urine Negative (Negative); Glucose,Urine (UA) Negative (Negative); Hyaline Casts,Urine 1 /LPF (0-3); Ketones,Urine Negative (Negative); Nitrite,Urine Negative (Negative); Protein,Urine Negative; RBC,Urine 3 /HPF (0-4); Squamous Epithelial Cell,Urine Occasional /HPF (0-10); Urine Color Straw (Yellow); Urine Urobilinogen < 2.0 EU/DL (0.2-1.0); WBC,Urine <1 /HPF (0-6)
[2019-07-30] MEDS: ENOXAPARIN 100 MG/ML SYRINGE SUBCUT SCH ×2 (06:13→18:28)
[2019-07-30 08:51] LABS: Basophils # 0.1 10*3/uL (0.0-0.2); Basophils % 1.1 % (0.0-0.8); Eosinophils # 0.3 10*3/uL (0.0-0.87); Eosinophils % 3.9 % (0.00-10.9); Hematocrit 40.7 VOL% (42.0-52.0); Hemoglobin 13.4 GM/DL (14.0-18.0); Immature Granulocytes % 0.3 %; Immature Granulocytes Absolute 0.02 #; Lymphocytes # 1.5 10*3/uL (1.4-4.0); Lymphocytes % 21.5 % (21.2-54.2); Mean Corpuscular HGB Conc 32.9 GM/DL (32-36); Mean Corpuscular Volume 82.6 FL (87-102); Mean Platelet Volume 11.4 FL (9.6-12.0); Monocytes % 7.8 % (1.7-12.7); Neutrophils % 65.4 % (38.7-73.9); Platelet Count 141 T/CUMM (130-400); Red Blood Count 4.93 MC/CUMM (3.8-5.5); Red Cell Distribution Width 14.3 % (9.3-17.3); White Blood Count 7.2 T/CUMM (4-12)
[2019-07-30] MEDS ORDERED: MAGNESIUM SULF RIDER 2 GM in PREMIX 1 EACH IV PRN (08:56)
[2019-07-30] MEDS ORDERED: diphenhydrAMINE CAP 25 MG CAPSULE PO ONE (08:56)
[2019-07-30] MEDS ORDERED: POTASSIUM CHLORIDE RIDER 10 MEQ in PREMIX 1 EACH IV PRN (08:56)
[2019-07-30] MEDS ORDERED: DIAZEPAM 5 MG TABLET PO ONE (08:56)
[2019-07-30 09:11] LABS: Calcium 9.3 MG/DL (8.5-10.1); Osmolality,Calculated 276.7 MOS/KG (273-304)
[2019-07-30] MEDS: ASPIRIN EC 81 MG TABLET PO SCH (09:37)
[2019-07-30] MEDS: amLODIPine 5 MG TABLET PO SCH (09:37)
[2019-07-30] MEDS: CLOPIDOGREL 75 MG TABLET PO SCH (09:37)
[2019-07-30] MEDS: carvediloL 25 MG TABLET PO SCH ×2 (09:37→21:41)
[2019-07-30] MEDS: SODIUM CHLORIDE 0.45% 1,000 ML IV SCH (09:42)
[2019-07-30] MEDS: INSULIN REGULAR 100 UNIT/ML SUBCUT SCH ×4 (09:42→21:42)
[2019-07-30] MEDS: FUROSEMIDE 20 MG TABLET PO SCH (09:43)
[2019-07-30] MEDS: PANTOPRAZOLE 40 MG TABLET PO SCH (09:43)
[2019-07-30] MEDS ORDERED: HEPARIN/NACL 0.9% 2 UNITS/ML 1,000 ML IV ONE (10:00)
[2019-07-30] MEDS ORDERED: LIDOCAINE 1% 20 ML VIAL ONE (10:00)
[2019-07-30] MEDS ORDERED: NITROGLYCERIN DRIP 50 MG/250 ML BOTTLE IV ONE (10:00)
[2019-07-30] MEDS ORDERED: VERAPAMIL 5 MG/2 ML VIAL ONE (10:01)
[2019-07-30] MEDS ORDERED: HYDROmorphone 2 MG/1 ML VIAL ONE (10:16)
[2019-07-30] MEDS ORDERED: MIDAZOLAM 2 MG/2 ML VIAL ONE (10:17)
[2019-07-30] MEDS ORDERED: ONDANSETRON 4 MG/2 ML VIAL ONE (10:22)
[2019-07-30] MEDS ORDERED: CLOPIDOGREL 300 MG TABLET ONE (11:27)
[2019-07-30] MEDS: CILOSTAZOL 50 MG TABLET PO SCH ×2 (12:49→21:41)
[2019-07-30] MEDS ORDERED: DEXTROSE 50% 25 GM/50 ML VIAL IV PRN (17:50)
[2019-07-30] MEDS ORDERED: GLUCAGON 1 MG VIAL IM PRN (17:50)
[2019-07-30] MEDS: LISINOPRIL 20 MG TABLET PO SCH (21:40)
[2019-07-30] MEDS: ATORVASTATIN 40 MG TABLET PO SCH (21:41)
[2019-07-31 04:54] LABS: Basophils # 0.1 10*3/uL (0.0-0.2); Basophils % 1.2 % (0.0-0.8); Eosinophils # 0.3 10*3/uL (0.0-0.87); Eosinophils % 4.8 % (0.00-10.9); Hematocrit 36.8 VOL% (42.0-52.0); Hemoglobin 11.9 GM/DL (14.0-18.0); Immature Granulocytes % 0.2 %; Immature Granulocytes Absolute 0.01 #; Lymphocytes # 1.3 10*3/uL (1.4-4.0); Lymphocytes % 22.5 % (21.2-54.2); Mean Corpuscular HGB Conc 32.3 GM/DL (32-36); Mean Corpuscular Volume 82.3 FL (87-102); Mean Platelet Volume 11.9 FL (9.6-12.0); Monocytes % 9.5 % (1.7-12.7); Neutrophils % 61.8 % (38.7-73.9); Platelet Count 122 T/CUMM (130-400); Red Blood Count 4.47 MC/CUMM (3.8-5.5); Red Cell Distribution Width 14.2 % (9.3-17.3); White Blood Count 5.8 T/CUMM (4-12)
[2019-07-31 05:11] LABS: Calcium 8.5 MG/DL (8.5-10.1); Osmolality,Calculated 277.1 MOS/KG (273-304)
[2019-07-31 05:33] LABS: Blood Urea Nitrogen 14 MG/DL (7-18); Calcium 8.7 MG/DL (8.5-10.1); Estimated Glom Filtration Rate 56 ML/MIN; Glucose 226 MG/DL (74-106); Osmolality,Calculated 275.2 MOS/KG (273-304)
[2019-07-31] MEDS: ENOXAPARIN 100 MG/ML SYRINGE SUBCUT SCH (06:49)
[2019-07-31] MEDS: carvediloL 25 MG TABLET PO SCH (09:16)
[2019-07-31] MEDS: amLODIPine 5 MG TABLET PO SCH (09:16)
[2019-07-31] MEDS: INSULIN REGULAR 100 UNIT/ML SUBCUT SCH (09:16)
[2019-07-31] MEDS: PANTOPRAZOLE 40 MG TABLET PO SCH (09:16)
[2019-07-31] MEDS: CLOPIDOGREL 75 MG TABLET PO SCH (09:16)
[2019-07-31] MEDS: SODIUM CHLORIDE 0.45% 1,000 ML IV SCH ×2 (09:16→09:17)
[2019-07-31] MEDS: CILOSTAZOL 50 MG TABLET PO SCH (09:16)
[2019-07-31] MEDS: ASPIRIN EC 81 MG TABLET PO SCH (09:16)
[2019-07-31] MEDS: FUROSEMIDE 20 MG TABLET PO SCH (09:16)
[2019-07-31 11:56] VITALS: BP 125/71
== END 2019-07-31 13:07 | disposition home or self-care (01) | DRG 246 ==
LOC: N.TELES → SUATTDRO 07-29 01:17
PROVIDERS: ADMIT Internal Medicine; ATTEND Internal Medicine

== ENCOUNTER 2019-09-09 20:13 | Observation (INO) ==
[2019-09-09] MEDS ORDERED: ASPIRIN 325 MG TABLET PO STA (21:20)
[2019-09-09 21:30] LABS: Basophils # 0.1 10*3/uL (0.0-0.2); Eosinophils # 0.2 10*3/uL (0.0-0.87); Eosinophils % 4.4 % (0.00-10.9); Hematocrit 36.2 VOL% (42.0-52.0); Hemoglobin 11.9 GM/DL (14.0-18.0); Immature Granulocytes % 0.4 %; Immature Granulocytes Absolute 0.02 #; Lymphocytes # 1.3 10*3/uL (1.4-4.0); Lymphocytes % 26.1 % (21.2-54.2); Mean Corpuscular HGB Conc 32.9 GM/DL (32-36); Mean Corpuscular Volume 83.4 FL (87-102); Mean Platelet Volume 10.8 FL (9.6-12.0); Monocytes % 8.4 % (1.7-12.7); Neutrophils % 59.7 % (38.7-73.9); Platelet Count 128 T/CUMM (130-400); Red Blood Count 4.34 MC/CUMM (3.8-5.5); Red Cell Distribution Width 15.2 % (9.3-17.3)
[2019-09-09 21:40] LABS: PT Patient Result 10.7 SECS (9.6-12.2); Partial Thromboplastin Time 23.3 SECS (20.8-36.0)
[2019-09-09 21:56] LABS: Albumin 3.6 G/DL (3.4-5.0); Bilirubin,Total 1.3 MG/DL (0.2-1.0); Calcium 8.7 MG/DL (8.5-10.1); Osmolality,Calculated 279.4 MOS/KG (273-304); Total Protein 7.1 G/DL (6.4-8.3)
[2019-09-10] MEDS ORDERED: ONDANSETRON 4 MG/2 ML VIAL IV PRN (00:09)
[2019-09-10] MEDS ORDERED: GLUCAGON 1 MG VIAL IM PRN (00:17)
[2019-09-10] MEDS ORDERED: DEXTROSE 50% 25 GM/50 ML VIAL IV PRN (00:17)
[2019-09-10] MEDS ORDERED: MAGNESIUM OXIDE 400 MG TABLET PO ONE (00:23)
[2019-09-10] MEDS ORDERED: CYCLOBENZAPRINE 10 MG TABLET PO STA (00:23)
[2019-09-10] MEDS ORDERED: FUROSEMIDE 20 MG TABLET PO PRN (01:00)
[2019-09-10] MEDS ORDERED: CYCLOBENZAPRINE 10 MG TABLET PO PRN (01:00)
[2019-09-10] MEDS: NITROGLYCERIN 2% OINT 1 INCH/GM PACK TOP SCH ×2 (05:08→12:07)
[2019-09-10 07:28] LABS: Calcium 8.4 MG/DL (8.5-10.1)
[2019-09-10] MEDS ORDERED: ENOXAPARIN 40 MG/0.4 ML SYRINGE SUBCUT SCH (08:00)
[2019-09-10] MEDS: INSULIN REGULAR 100 UNIT/ML SUBCUT SCH ×2 (08:16→11:13)
[2019-09-10] MEDS ORDERED: PANTOPRAZOLE 40 MG TABLET PO SCH (09:00)
[2019-09-10] MEDS ORDERED: CHOLECALCIFEROL 5,000 UNIT TABLET PO SCH (09:00)
[2019-09-10] MEDS ORDERED: LORATADINE 10 MG TABLET PO SCH (09:00)
[2019-09-10] MEDS ORDERED: amLODIPine 5 MG TABLET PO SCH (09:00)
[2019-09-10] MEDS ORDERED: NON-FORMULARY MEDICATION (Magnesium 250 MG) PO SCH (09:00)
[2019-09-10] MEDS ORDERED: CILOSTAZOL 100 MG TABLET PO SCH (09:00)
[2019-09-10] MEDS ORDERED: CLOPIDOGREL 75 MG TABLET PO SCH (09:00)
[2019-09-10] MEDS ORDERED: ASPIRIN EC 81 MG TABLET PO SCH (09:00)
[2019-09-10] MEDS ORDERED: DEXTROSE 10% 250 ML IV ONE (10:59)
[2019-09-10] MEDS ORDERED: LISINOPRIL 20 MG TABLET PO SCH ×2 (11:30→21:00)
[2019-09-10 13:03] VITALS: BP 144/74
[2019-09-10] MEDS ORDERED: ATORVASTATIN 40 MG TABLET PO SCH (21:00)
== END 2019-09-10 15:07 | disposition home or self-care (01) ==
LOC: N.ED 20:13 → N.EDINP 20:13 → N.TELES 09-10 00:48
PROVIDERS: ADMIT Internal Medicine; ATTEND Internal Medicine

== ENCOUNTER 2019-09-23 00:12 | Observation (INO) ==
[2019-09-23] MEDS ORDERED: NITROGLYCERIN 2% OINT 1 INCH/GM PACK TOP STA (00:57)
[2019-09-23] MEDS ORDERED: ASPIRIN 325 MG TABLET PO STA (00:57)
[2019-09-23] MEDS ORDERED: ONDANSETRON 4 MG/2 ML VIAL IV STA (00:57)
[2019-09-23 01:09] LABS: Basophils # 0.1 10*3/uL (0.0-0.2); Basophils % 0.9 % (0.0-0.8); Eosinophils # 0.3 10*3/uL (0.0-0.87); Eosinophils % 3.8 % (0.00-10.9); Hematocrit 35.6 VOL% (42.0-52.0); Hemoglobin 11.9 GM/DL (14.0-18.0); Immature Granulocytes % 0.4 %; Immature Granulocytes Absolute 0.03 #; Lymphocytes # 1.4 10*3/uL (1.4-4.0); Lymphocytes % 19.5 % (21.2-54.2); Mean Corpuscular HGB Conc 33.4 GM/DL (32-36); Mean Corpuscular Volume 84.2 FL (87-102); Mean Platelet Volume 11.1 FL (9.6-12.0); Monocytes % 6.8 % (1.7-12.7); Neutrophils % 68.6 % (38.7-73.9); Platelet Count 128 T/CUMM (130-400); Red Blood Count 4.23 MC/CUMM (3.8-5.5); Red Cell Distribution Width 15.3 % (9.3-17.3); White Blood Count 7.4 T/CUMM (4-12)
[2019-09-23 01:27] LABS: PT Patient Result 11.1 SECS (9.6-12.2)
[2019-09-23 01:32] LABS: Alanine Aminotransferase 26 U/L (16-61); Albumin 3.7 G/DL (3.4-5.0); Alkaline Phosphatase 49 U/L (45-117); Aspartate Amino Transferase 16 U/L (0-37); Blood Urea Nitrogen 17 MG/DL (7-18); Calcium 8.5 MG/DL (8.5-10.1); Estimated Glom Filtration Rate 60 ML/MIN; Glucose 174 MG/DL (74-106); Osmolality,Calculated 286.3 MOS/KG (273-304); Total Protein 7.2 G/DL (6.4-8.3); Troponin I 0.269 NG/ML (0.00-0.045)
[2019-09-23] MEDS ORDERED: ONDANSETRON 4 MG/2 ML VIAL IV PRN (01:54)
[2019-09-23] MEDS ORDERED: BISACODYL 5 MG TABLET PO PRN (01:54)
[2019-09-23] MEDS ORDERED: NICOTINE 21 MG/24 HR PATCH TRANSDERM PRN (01:54)
[2019-09-23] MEDS ORDERED: MORPHINE 4 MG/1 ML VIAL IV PRN (01:54)
[2019-09-23] MEDS ORDERED: ENOXAPARIN 100 MG/ML SYRINGE SUBCUT SCH (02:00)
[2019-09-23] MEDS ORDERED: GLUCAGON 1 MG VIAL IM PRN (02:01)
[2019-09-23] MEDS ORDERED: DEXTROSE 10% 250 ML BAG IV PRN (02:01)
[2019-09-23 02:26] LABS: Risk Ratio 3.03; Thyroid Stimulating Hormone 1.37 uIU/ml (0.358-3.74)
[2019-09-23] MEDS ORDERED: cloNIDine 0.1 MG TABLET PO PRN (02:41)
[2019-09-23] MEDS ORDERED: NITROGLYCERIN SL 0.4 MG TABLET SL PRN (02:41)
[2019-09-23] MEDS ORDERED: FUROSEMIDE 20 MG TABLET PO PRN (02:41)
[2019-09-23] MEDS ORDERED: DICYCLOMINE 20 MG TABLET PO PRN (02:41)
[2019-09-23] MEDS: ACETAMINOPHEN 325 MG TABLET PO PRN ×2 (03:06→23:08)
[2019-09-23] MEDS ORDERED: ENOXAPARIN 100 MG/ML SYRINGE SUBCUT ONE (05:25)
[2019-09-23] MEDS: ENOXAPARIN 100 MG/ML SYRINGE SUBCUT SCH ×3 (08:59→18:36)
[2019-09-23] MEDS: CLOPIDOGREL 75 MG TABLET PO SCH (08:59)
[2019-09-23] MEDS: MAGNESIUM OXIDE 400 MG TABLET PO SCH ×2 (08:59→21:47)
[2019-09-23] MEDS: ASPIRIN 325 MG TABLET PO SCH (08:59)
[2019-09-23] MEDS: CILOSTAZOL 100 MG TABLET PO SCH ×2 (08:59→21:47)
[2019-09-23] MEDS ORDERED: PANTOPRAZOLE 40 MG TABLET PO SCH (09:00)
[2019-09-23] MEDS: INSULIN REGULAR 100 UNIT/ML SUBCUT SCH ×4 (09:00→21:47)
[2019-09-23] MEDS ORDERED: LISINOPRIL 20 MG TABLET PO SCH (09:00)
[2019-09-23] MEDS: PANTOPRAZOLE 40 MG TABLET PO SCH ×2 (09:00→21:47)
[2019-09-23] MEDS: carvediloL 25 MG TABLET PO SCH ×2 (09:00→16:54)
[2019-09-23] MEDS: NITROGLYCERIN 2% OINT 1 INCH/GM PACK TOP SCH ×2 (12:19→16:59)
[2019-09-23] MEDS ORDERED: ATORVASTATIN 40 MG TABLET PO SCH (21:00)
[2019-09-24] MEDS: NITROGLYCERIN 2% OINT 1 INCH/GM PACK TOP SCH ×2 (00:11→06:12)
[2019-09-24 04:46] LABS: Basophils % 0.8 % (0.0-0.8); Eosinophils # 0.3 10*3/uL (0.0-0.87); Hematocrit 31.9 VOL% (42.0-52.0); Hemoglobin 10.6 GM/DL (14.0-18.0); Immature Granulocytes % 0.2 %; Immature Granulocytes Absolute 0.01 #; Lymphocytes # 1.7 10*3/uL (1.4-4.0); Lymphocytes % 33.3 % (21.2-54.2); Mean Corpuscular HGB Conc 33.2 GM/DL (32-36); Mean Corpuscular Volume 83.3 FL (87-102); Mean Platelet Volume 11.1 FL (9.6-12.0); Monocytes % 8.2 % (1.7-12.7); Neutrophils % 51.5 % (38.7-73.9); Platelet Count 124 T/CUMM (130-400); Red Blood Count 3.83 MC/CUMM (3.8-5.5)
[2019-09-24 05:05] LABS: Albumin 3.2 G/DL (3.4-5.0); Calcium 8.2 MG/DL (8.5-10.1); Total Protein 6.3 G/DL (6.4-8.3)
[2019-09-24] MEDS ORDERED: ASPIRIN EC 81 MG TABLET PO SCH (09:00)
[2019-09-24] MEDS ORDERED: GLIMEPIRIDE 4 MG TABLET PO SCH (09:00)
[2019-09-24] MEDS: carvediloL 25 MG TABLET PO SCH (09:21)
[2019-09-24] MEDS: MAGNESIUM OXIDE 400 MG TABLET PO SCH (09:21)
[2019-09-24] MEDS: PANTOPRAZOLE 40 MG TABLET PO SCH (09:21)
[2019-09-24] MEDS: CILOSTAZOL 100 MG TABLET PO SCH (09:21)
[2019-09-24] MEDS: CLOPIDOGREL 75 MG TABLET PO SCH (09:21)
[2019-09-24] MEDS: ENOXAPARIN 100 MG/ML SYRINGE SUBCUT SCH (09:22)
[2019-09-24] MEDS: ASPIRIN 325 MG TABLET PO SCH (09:22)
[2019-09-24] MEDS: INSULIN REGULAR 100 UNIT/ML SUBCUT SCH ×2 (09:26→12:28)
[2019-09-24 13:03] VITALS: BP 132/73
[2019-09-24] MEDS ORDERED: ISOSORBIDE MONONITRATE 30 MG TABLET PO SCH (17:00)
== END 2019-09-24 16:38 | disposition home or self-care (01) ==
LOC: N.ED 00:12 → N.EDINP 00:12 → N.TELES 02:14
PROVIDERS: ADMIT Family Medicine; ATTEND Family Medicine

== ENCOUNTER 2020-09-22 00:38 | Inpatient (IN) ==
[2020-09-22] MEDS ORDERED: ROCURONIUM 100 MG/10 ML VIAL IV STA (00:50)
[2020-09-22] MEDS ORDERED: ETOMIDATE 20 MG/10 ML VIAL IV STA (00:50)
[2020-09-22] MEDS ORDERED: SODIUM CHLORIDE 0.9% 1,000 ML IV STA (00:53)
[2020-09-22] MEDS ORDERED: LABETALOL 20 MG/4 ML SYRINGE IV ONE (01:13)
[2020-09-22] MEDS ORDERED: NITROGLYCERIN DRIP 0 MG/0 ML BOTTLE IV ONE (01:14)
[2020-09-22] MEDS ORDERED: LABETALOL 20 MG/4 ML SYRINGE IV STA (01:18)
[2020-09-22 01:20] LABS: ABG Base Excess -6.5 MMOL/L (-2.5-2.5); ABG HCO3 19.1 MMOL/L (20-26); ABG Oxygen Saturation 94.2 % (95-100); ABG PCO2 54.8 MM HG (35-48); ABG PH 7.216 (7.35-7.45); ABG PO2 92.4 MM HG (80-95); ABG TCO2 20.1 MMOL/L (23-27)
[2020-09-22] MEDS ORDERED: MIDAZOLAM 2 MG/2 ML VIAL ONE ×2 (01:21→06:09)
[2020-09-22] MEDS ORDERED: LIDOCAINE 1% 20 ML VIAL ONE (01:21)
[2020-09-22] MEDS ORDERED: fentaNYL 100 MCG/2 ML VIAL ONE (01:21)
[2020-09-22 01:24] LABS: Basophils # 0.1 10*3/uL (0.0-0.2); Basophils % 0.9 % (0.0-0.8); Eosinophils # 0.3 10*3/uL (0.0-0.87); Eosinophils % 2.2 % (0.00-10.9); Hematocrit 42.3 VOL% (42.0-52.0); Hemoglobin 13.1 GM/DL (14.0-18.0); Immature Granulocytes % 0.6 %; Immature Granulocytes Absolute 0.08 #; Lymphocytes # 1.8 10*3/uL (1.4-4.0); Mean Corpuscular Volume 81.2 FL (87-102); Mean Platelet Volume 11.5 FL (9.6-12.0); Neutrophils % 77.3 % (38.7-73.9); Platelet Count 225 T/CUMM (130-400); Red Blood Count 5.21 MC/CUMM (3.8-5.5); Red Cell Distribution Width 15.7 % (9.3-17.3); White Blood Count 12.5 T/CUMM (4-12)
[2020-09-22 01:25] LABS: Amorphous Crystals,Urine Occasional /HPF (Few); Bacteria,Urine Moderate /HPF (Few); Bilirubin,Urine Negative (Negative); Blood, Urine Negative (Negative); Glucose,Urine (UA) >=500 mg/dL (Negative); Ketones,Urine Negative (Negative); Mucus,Urine Occasional /LPF (Occasional); Nitrite,Urine Negative (Negative); Protein,Urine 100 MG/DL; RBC,Urine 1 /HPF (0-4); Squamous Epithelial Cell,Urine Occasional /HPF (0-10); Urine Appearance CLEAR (Clear); Urine Color Yellow (Yellow); Urine Specific Gravity 1.012 (1.001-1.035); Urine Urobilinogen < 2.0 EU/DL (0.2-1.0); WBC,Urine 2 /HPF (0-6)
[2020-09-22] MEDS ORDERED: ENOXAPARIN 30 MG/0.3 ML SYRINGE ONE (01:29)
[2020-09-22 01:30] LABS: Albumin 3.7 G/DL (3.4-5.0); Bilirubin,Total 0.9 MG/DL (0.2-1.0); Calcium 8.7 MG/DL (8.5-10.1); Osmolality,Calculated 278.2 MOS/KG (273-304)
[2020-09-22 01:31] LABS: Troponin I 0.09 NG/ML (0.00-0.045)
[2020-09-22 01:38] LABS: Barbiturates Screen,Urine Negative (Negative); Benzodiazepines Screen,Urine Negative (Negative); Cannabinoid Screen,Urine Negative (Negative); Opiate Screen,Urine Negative (Negative); Phencyclidine Screen,Urine Negative (Negative)
[2020-09-22 01:39] LABS: PT Patient Result 11.1 SECS (9.8-11.9); Partial Thromboplastin Time 25.5 SECS (23.9-33.8)
[2020-09-22] MEDS ORDERED: TIROFIBAN 5,000 MCG/100 ML PREMIX IV ONE ×2 (01:46)
[2020-09-22] MEDS ORDERED: TIROFIBAN 5,000 MCG/100 ML PREMIX IV SCH (01:52)
[2020-09-22] MEDS ORDERED: METOPROLOL TARTRATE 5 MG/5 ML VIAL IV ONE (02:00)
[2020-09-22] MEDS ORDERED: NITROPRUSSIDE 50 MG/2 ML VIAL ONE (02:04)
[2020-09-22] MEDS ORDERED: SODIUM CHLORIDE 0.9% 1,000 ML IV SCH (03:00)
[2020-09-22] MEDS ORDERED: CLOPIDOGREL 300 MG TABLET PO ONE (03:00)
[2020-09-22 03:06] LABS: ABG Base Excess -12.9 MMOL/L (-2.5-2.5); ABG HCO3 14.4 MMOL/L (20-26); ABG Oxygen Saturation 90.6 % (95-100); ABG TCO2 28.8 MMOL/L (23-27)
[2020-09-22 03:09] LABS: ABG PH 6.854 (7.35-7.45)
[2020-09-22 03:19] LABS: Basophils # 0.2 10*3/uL (0.0-0.2); Basophils % 0.7 % (0.0-0.8); Eosinophils # 0.2 10*3/uL (0.0-0.87); Hematocrit 41.4 VOL% (42.0-52.0); Hemoglobin 12.8 GM/DL (14.0-18.0); Immature Granulocytes % 0.9 %; Immature Granulocytes Absolute 0.18 #; Lymphocytes # 2.3 10*3/uL (1.4-4.0); Lymphocytes % 11.1 % (21.2-54.2); Mean Corpuscular HGB Conc 30.9 GM/DL (32-36); Mean Corpuscular Volume 81.8 FL (87-102); Mean Platelet Volume 11.5 FL (9.6-12.0); Monocytes % 5.5 % (1.7-12.7); Neutrophils % 80.8 % (38.7-73.9); Platelet Count 275 T/CUMM (130-400); Red Blood Count 5.06 MC/CUMM (3.8-5.5); Red Cell Distribution Width 15.7 % (9.3-17.3)
[2020-09-22 03:26] LABS: ABG Base Excess -7.4 MMOL/L (-2.5-2.5); ABG HCO3 18.5 MMOL/L (20-26); ABG Oxygen Saturation 97.8 % (95-100); ABG TCO2 21.8 MMOL/L (23-27)
[2020-09-22 03:28] LABS: ABG PH 7.137 (7.35-7.45)
[2020-09-22] MEDS ORDERED: NITROGLYCERIN DRIP 50 MG/250 ML BOTTLE IV ONE (03:29)
[2020-09-22] MEDS ORDERED: NITROGLYCERIN DRIP 50 MG/250 ML BOTTLE IV PRN ×2 (03:31→03:35)
[2020-09-22] MEDS ORDERED: FUROSEMIDE 40 MG/4 ML VIAL IV ONE (03:32)
[2020-09-22] MEDS ORDERED: FUROSEMIDE 40 MG/4 ML VIAL ONE (03:33)
[2020-09-22 03:48] LABS: Lymphocytes 5 % (20-55); Platelet Estimate Normal; Segmented Neutrophils 90 % (50-85); Total Cells Counted 100
[2020-09-22 03:49] LABS: Microcytosis Slight
[2020-09-22 03:54] LABS: Calcium 7.7 MG/DL (8.5-10.1); Osmolality,Calculated 276.5 MOS/KG (273-304); Risk Ratio 3.81; VLDL CHOLESTEROL 37.2 MG/DL
[2020-09-22] MEDS ORDERED: SODIUM POLYSTYRENE SULFATE 15 GM/60 ML BOTTLE PO ONE (04:07)
[2020-09-22 04:25] LABS: ABG Base Excess -5.5 MMOL/L (-2.5-2.5); ABG HCO3 21.6 MMOL/L (20-26); ABG Oxygen Saturation 98.9 % (95-100); ABG PCO2 49.1 MM HG (35-48); ABG PH 7.262 (7.35-7.45); ABG PO2 196.5 MM HG (80-95); ABG TCO2 23.1 MMOL/L (23-27)
[2020-09-22 04:40] LABS: CKMB % 7.2 %
[2020-09-22 04:42] LABS: Troponin I 2.36 NG/ML (0.00-0.045)
[2020-09-22] MEDS ORDERED: DOBUTamine 500 MG/250 ML PREMIX IV ONE (06:15)
[2020-09-22] MEDS: DOBUTamine 500 MG/250 ML PREMIX IV PRN ×3 (06:18→19:50)
[2020-09-22] MEDS ORDERED: MIDAZOLAM 2 MG/2 ML VIAL IV ONE (06:29)
[2020-09-22 08:50] LABS: Calcium 8.2 MG/DL (8.5-10.1); Osmolality,Calculated 280.5 MOS/KG (273-304)
[2020-09-22] MEDS ORDERED: PNEUMOCOCCAL VACCINE (13 VALENT) 0.5 ML SYRINGE IM ONE (08:54)
[2020-09-22] MEDS ORDERED: ASPIRIN EC 325 MG TABLET PO SCH (09:00)
[2020-09-22] MEDS: carvediloL 12.5 MG TABLET PO SCH ×2 (09:20→18:20)
[2020-09-22 11:48] LABS: CKMB % 8.1 %
[2020-09-22 11:54] LABS: Troponin I 9.11 NG/ML (0.00-0.045)
[2020-09-22] MEDS ORDERED: GLUCAGON 1 MG VIAL IM PRN (13:06)
[2020-09-22] MEDS ORDERED: DEXTROSE 50% 25 GM/50 ML VIAL IV PRN (13:06)
[2020-09-22] MEDS: INSULIN LISPRO 100 UNIT/ML SUBCUT SCH ×2 (17:43→20:19)
[2020-09-22] MEDS: ENOXAPARIN 40 MG/0.4 ML SYRINGE SUBCUT SCH (18:20)
[2020-09-22] MEDS: ATORVASTATIN 40 MG TABLET PO SCH (20:24)
[2020-09-22 23:24] LABS: CKMB % 2.2 %
[2020-09-22 23:27] LABS: Troponin I 5.83 NG/ML (0.00-0.045)
[2020-09-23 05:52] LABS: ABG Base Excess -0.1 MMOL/L (-2.5-2.5); ABG HCO3 24.4 MMOL/L (20-26); ABG PCO2 30.2 MM HG (35-48); ABG PH 7.484 (7.35-7.45); ABG TCO2 20.7 MMOL/L (23-27)
[2020-09-23 05:56] LABS: Basophils % 0.2 % (0.0-0.8); Eosinophils # 0.1 10*3/uL (0.0-0.87); Hematocrit 30.8 VOL% (42.0-52.0); Immature Granulocytes % 0.5 %; Immature Granulocytes Absolute 0.04 #; Lymphocytes % 12.5 % (21.2-54.2); Mean Corpuscular HGB Conc 32.1 GM/DL (32-36); Mean Corpuscular Volume 79.2 FL (87-102); Mean Platelet Volume 11.3 FL (9.6-12.0); Neutrophils % 76.8 % (38.7-73.9); Red Cell Distribution Width 15.7 % (9.3-17.3)
[2020-09-23 06:18] LABS: Albumin 2.7 G/DL (3.4-5.0); Bilirubin,Direct 0.27 MG/DL (0.0-0.20); Bilirubin,Indirect 1.3 MG/DL (0.0-1.0); Bilirubin,Total 1.6 MG/DL (0.2-1.0); Calcium 7.9 MG/DL (8.5-10.1); Osmolality,Calculated 283.1 MOS/KG (273-304); Total Protein 6.1 G/DL (6.4-8.3)
[2020-09-23 06:24] LABS: ABG PCO2 70.2 MM HG (35-48)
[2020-09-23 06:24] LABS: Hemoglobin 9.9 GM/DL (14.0-18.0); Platelet Count 142 T/CUMM (130-400); Red Blood Count 3.89 MC/CUMM (3.8-5.5); White Blood Count 8.1 T/CUMM (4-12)
[2020-09-23] MEDS: INSULIN LISPRO 100 UNIT/ML SUBCUT SCH ×4 (07:38→20:34)
[2020-09-23] MEDS: carvediloL 12.5 MG TABLET PO SCH ×2 (08:29→18:05)
[2020-09-23] MEDS: CLOPIDOGREL 75 MG TABLET PO SCH (08:30)
[2020-09-23] MEDS: ASPIRIN 325 MG TABLET NG SCH (08:30)
[2020-09-23] MEDS ORDERED: MAGNESIUM SULF RIDER 2 GM in PREMIX 1 EACH IV ONE (09:34)
[2020-09-23] MEDS: POTASSIUM CHLORIDE 20 MEQ/15 ML UDCUP PER TUBE PRN ×2 (10:48→17:11)
[2020-09-23] MEDS: ENOXAPARIN 40 MG/0.4 ML SYRINGE SUBCUT SCH (18:05)
[2020-09-23] MEDS: ASCORBIC ACID 500 MG TABLET PO SCH (20:38)
[2020-09-23] MEDS: ATORVASTATIN 40 MG TABLET PO SCH (20:38)
[2020-09-24 03:45] LABS: Basophils # 0.1 10*3/uL (0.0-0.2); Basophils % 0.6 % (0.0-0.8); Eosinophils # 0.2 10*3/uL (0.0-0.87); Eosinophils % 2.5 % (0.00-10.9); Hematocrit 30.5 VOL% (42.0-52.0); Hemoglobin 9.7 GM/DL (14.0-18.0); Immature Granulocytes % 0.9 %; Immature Granulocytes Absolute 0.07 #; Lymphocytes # 1.1 10*3/uL (1.4-4.0); Lymphocytes % 13.6 % (21.2-54.2); Mean Corpuscular HGB Conc 31.8 GM/DL (32-36); Mean Corpuscular Volume 80.7 FL (87-102); Mean Platelet Volume 10.6 FL (9.6-12.0); Monocytes % 8.9 % (1.7-12.7); Neutrophils % 73.5 % (38.7-73.9); Platelet Count 125 T/CUMM (130-400); Red Blood Count 3.78 MC/CUMM (3.8-5.5); Red Cell Distribution Width 15.7 % (9.3-17.3)
[2020-09-24 04:04] LABS: Albumin 2.7 G/DL (3.4-5.0); Bilirubin,Direct 0.41 MG/DL (0.0-0.20); Bilirubin,Indirect 0.7 MG/DL (0.0-1.0); Bilirubin,Total 1.1 MG/DL (0.2-1.0); Calcium 7.9 MG/DL (8.5-10.1); Osmolality,Calculated 284.1 MOS/KG (273-304); Total Protein 6.4 G/DL (6.4-8.3)
[2020-09-24 04:29] LABS: Allen Test Positive; Pt O2 Delivery Device Ventilator
[2020-09-24 04:30] LABS: ABG HCO3 24.7 MMOL/L (20-26); ABG Oxygen Saturation 95.5 % (95-100); ABG PCO2 35.9 MM HG (35-48); ABG PH 7.456 (7.35-7.45); ABG TCO2 25.8 MMOL/L (23-27)
[2020-09-24] MEDS: INSULIN LISPRO 100 UNIT/ML SUBCUT SCH ×4 (07:52→20:37)
[2020-09-24] MEDS ORDERED: FUROSEMIDE 40 MG/4 ML VIAL IV ONE (08:22)
[2020-09-24] MEDS: carvediloL 12.5 MG TABLET PO SCH ×2 (09:14→17:16)
[2020-09-24] MEDS: ASPIRIN 325 MG TABLET NG SCH (09:14)
[2020-09-24] MEDS: CLOPIDOGREL 75 MG TABLET PO SCH (09:14)
[2020-09-24] MEDS: ASCORBIC ACID 500 MG TABLET PO SCH ×2 (09:15→20:37)
[2020-09-24] MEDS ORDERED: FUROSEMIDE 20 MG/2 ML VIAL IV ONE (09:34)
[2020-09-24] MEDS ORDERED: POTASSIUM CHLORIDE 20 MEQ TABLET PO ONE (11:45)
[2020-09-24] MEDS ORDERED: AMIODARONE INJ 150 MG in DEXTROSE 5% 100 ML IV ONE (14:06)
[2020-09-24] MEDS ORDERED: AMIODARONE INJ 450 MG in DEXTROSE 5% 241 ML IV SCH (14:30)
[2020-09-24] MEDS ORDERED: MAGNESIUM SULF RIDER 1 GM in PREMIX 1 EACH IV ONE (15:30)
[2020-09-24] MEDS: ENOXAPARIN 40 MG/0.4 ML SYRINGE SUBCUT SCH (18:47)
[2020-09-24] MEDS: ATORVASTATIN 40 MG TABLET PO SCH (20:37)
[2020-09-24] MEDS: AMIODARONE INJ 450 MG in DEXTROSE 5% 241 ML IV SCH (22:29)
[2020-09-25 04:17] LABS: ABG Base Excess 0.8 MMOL/L (-2.5-2.5); ABG HCO3 25.1 MMOL/L (20-26); ABG Oxygen Saturation 97.6 % (95-100); ABG PH 7.443 (7.35-7.45); ABG PO2 92.8 MM HG (80-95); ABG TCO2 22.3 MMOL/L (23-27)
[2020-09-25] MEDS: AMIODARONE INJ 450 MG in DEXTROSE 5% 241 ML IV SCH ×3 (04:44→20:30)
[2020-09-25 05:09] LABS: Basophils # 0.1 10*3/uL (0.0-0.2); Basophils % 0.7 % (0.0-0.8); Eosinophils # 0.3 10*3/uL (0.0-0.87); Eosinophils % 3.9 % (0.00-10.9); Hematocrit 31.7 VOL% (42.0-52.0); Immature Granulocytes % 0.3 %; Immature Granulocytes Absolute 0.02 #; Lymphocytes % 12.9 % (21.2-54.2); Mean Corpuscular HGB Conc 31.5 GM/DL (32-36); Mean Corpuscular Volume 81.5 FL (87-102); Mean Platelet Volume 11.7 FL (9.6-12.0); Monocytes % 8.4 % (1.7-12.7); Neutrophils % 73.8 % (38.7-73.9); Platelet Count 131 T/CUMM (130-400); Red Blood Count 3.89 MC/CUMM (3.8-5.5); Red Cell Distribution Width 15.8 % (9.3-17.3); White Blood Count 7.5 T/CUMM (4-12)
[2020-09-25 05:28] LABS: Calcium 8.2 MG/DL (8.5-10.1); Osmolality,Calculated 284.3 MOS/KG (273-304)
[2020-09-25 05:31] LABS: Hypochromasia 1+; Microcytosis 1+; Platelet Estimate Adequate
[2020-09-25] MEDS: ASCORBIC ACID 500 MG TABLET PO SCH ×2 (08:03→21:21)
[2020-09-25] MEDS: ASPIRIN 325 MG TABLET NG SCH (08:03)
[2020-09-25] MEDS: CLOPIDOGREL 75 MG TABLET PO SCH (08:04)
[2020-09-25] MEDS: carvediloL 12.5 MG TABLET PO SCH ×2 (08:04→16:38)
[2020-09-25] MEDS: INSULIN LISPRO 100 UNIT/ML SUBCUT SCH ×4 (08:37→21:20)
[2020-09-25] MEDS: SPIRONOLACTONE 25 MG TABLET PO SCH (12:29)
[2020-09-25] MEDS: ENOXAPARIN 40 MG/0.4 ML SYRINGE SUBCUT SCH (21:20)
[2020-09-25] MEDS: ATORVASTATIN 40 MG TABLET PO SCH (21:21)
[2020-09-26] MEDS: AMIODARONE INJ 450 MG in DEXTROSE 5% 241 ML IV SCH (03:33)
[2020-09-26 05:35] LABS: Basophils # 0.1 10*3/uL (0.0-0.2); Basophils % 0.9 % (0.0-0.8); Eosinophils # 0.4 10*3/uL (0.0-0.87); Eosinophils % 6.8 % (0.00-10.9); Hematocrit 30.3 VOL% (42.0-52.0); Hemoglobin 9.4 GM/DL (14.0-18.0); Immature Granulocytes % 0.5 %; Immature Granulocytes Absolute 0.03 #; Lymphocytes # 0.9 10*3/uL (1.4-4.0); Lymphocytes % 15.3 % (21.2-54.2); Mean Corpuscular Volume 81.7 FL (87-102); Mean Platelet Volume 12.1 FL (9.6-12.0); Monocytes % 10.2 % (1.7-12.7); Neutrophils % 66.3 % (38.7-73.9); Platelet Count 122 T/CUMM (130-400); Red Blood Count 3.71 MC/CUMM (3.8-5.5); Red Cell Distribution Width 15.6 % (9.3-17.3); White Blood Count 5.8 T/CUMM (4-12)
[2020-09-26] MEDS: CLOPIDOGREL 75 MG TABLET PO SCH (08:00)
[2020-09-26] MEDS: carvediloL 12.5 MG TABLET PO SCH ×2 (08:00→17:36)
[2020-09-26] MEDS: ASPIRIN 325 MG TABLET NG SCH (08:00)
[2020-09-26] MEDS: ASCORBIC ACID 500 MG TABLET PO SCH ×2 (08:01→20:36)
[2020-09-26] MEDS: ACETAMINOPHEN 325 MG TABLET PO PRN ×2 (08:01→20:41)
[2020-09-26] MEDS: SPIRONOLACTONE 25 MG TABLET PO SCH (08:02)
[2020-09-26] MEDS: INSULIN LISPRO 100 UNIT/ML SUBCUT SCH ×4 (08:03→20:34)
[2020-09-26] MEDS: AMIODARONE 200 MG TABLET PO SCH ×2 (09:32→20:36)
[2020-09-26 10:38] LABS: Calcium 8.4 MG/DL (8.5-10.1); Osmolality,Calculated 287.1 MOS/KG (273-304)
[2020-09-26] MEDS ORDERED: POTASSIUM CHLORIDE 20 MEQ TABLET PO ONE (11:19)
[2020-09-26] MEDS: ENOXAPARIN 40 MG/0.4 ML SYRINGE SUBCUT SCH (18:05)
[2020-09-26] MEDS: LIDOCAINE 5% PATCH TRANSDERM SCH (18:53)
[2020-09-26] MEDS: ATORVASTATIN 40 MG TABLET PO SCH (20:35)
[2020-09-27 06:36] LABS: Basophils # 0.1 10*3/uL (0.0-0.2); Basophils % 0.9 % (0.0-0.8); Eosinophils # 0.3 10*3/uL (0.0-0.87); Eosinophils % 4.7 % (0.00-10.9); Hemoglobin 9.7 GM/DL (14.0-18.0); Immature Granulocytes % 0.6 %; Immature Granulocytes Absolute 0.03 #; Lymphocytes # 0.7 10*3/uL (1.4-4.0); Lymphocytes % 13.4 % (21.2-54.2); Mean Corpuscular HGB Conc 31.3 GM/DL (32-36); Mean Platelet Volume 11.5 FL (9.6-12.0); Monocytes % 8.3 % (1.7-12.7); Neutrophils % 72.1 % (38.7-73.9); Platelet Count 137 T/CUMM (130-400); Red Blood Count 3.78 MC/CUMM (3.8-5.5); Red Cell Distribution Width 15.9 % (9.3-17.3); White Blood Count 5.3 T/CUMM (4-12)
[2020-09-27 06:54] LABS: Albumin 2.7 G/DL (3.4-5.0); Bilirubin,Direct 0.49 MG/DL (0.0-0.20); Bilirubin,Total 1.5 MG/DL (0.2-1.0)
[2020-09-27 06:56] LABS: Blood Urea Nitrogen 18 MG/DL (7-18); Calcium 8.6 MG/DL (8.5-10.1); Estimated Glom Filtration Rate 87 ML/MIN; Glucose 127 MG/DL (74-106); Osmolality,Calculated 284.3 MOS/KG (273-304)
[2020-09-27 06:57] LABS: Troponin I 0.589 NG/ML (0.00-0.045)
[2020-09-27] MEDS: INSULIN LISPRO 100 UNIT/ML SUBCUT SCH ×4 (09:03→20:08)
[2020-09-27] MEDS: LIDOCAINE 5% PATCH TRANSDERM SCH (09:04)
[2020-09-27] MEDS: CLOPIDOGREL 75 MG TABLET PO SCH (09:06)
[2020-09-27] MEDS: SPIRONOLACTONE 25 MG TABLET PO SCH (09:06)
[2020-09-27] MEDS: ASPIRIN 325 MG TABLET NG SCH (09:06)
[2020-09-27] MEDS: POTASSIUM CHLORIDE 20 MEQ/15 ML UDCUP PER TUBE PRN (09:06)
[2020-09-27] MEDS: ASCORBIC ACID 500 MG TABLET PO SCH ×2 (09:06→21:15)
[2020-09-27] MEDS: AMIODARONE 200 MG TABLET PO SCH ×2 (09:06→21:16)
[2020-09-27] MEDS: carvediloL 12.5 MG TABLET PO SCH ×2 (09:06→16:42)
[2020-09-27] MEDS ORDERED: FUROSEMIDE 40 MG/4 ML VIAL IV ONE (10:36)
[2020-09-27] MEDS: SACUBITRIL/VALSARTAN 49-51 MG TABLET PO SCH ×2 (10:52→21:15)
[2020-09-27] MEDS ORDERED: POTASSIUM CHLORIDE 20 MEQ TABLET PO ONE (11:00)
[2020-09-27] MEDS: ACETAMINOPHEN 325 MG TABLET PO PRN (15:40)
[2020-09-27] MEDS: FUROSEMIDE 40 MG/4 ML VIAL IV SCH (16:42)
[2020-09-27] MEDS: ENOXAPARIN 40 MG/0.4 ML SYRINGE SUBCUT SCH (17:59)
[2020-09-27] MEDS: ATORVASTATIN 40 MG TABLET PO SCH (21:16)
[2020-09-28 05:37] LABS: Basophils # 0.1 10*3/uL (0.0-0.2); Eosinophils # 0.3 10*3/uL (0.0-0.87); Eosinophils % 5.8 % (0.00-10.9); Hematocrit 32.9 VOL% (42.0-52.0); Hemoglobin 10.1 GM/DL (14.0-18.0); Immature Granulocytes % 0.4 %; Immature Granulocytes Absolute 0.02 #; Lymphocytes # 0.8 10*3/uL (1.4-4.0); Lymphocytes % 17.1 % (21.2-54.2); Mean Corpuscular HGB Conc 30.7 GM/DL (32-36); Mean Corpuscular Volume 81.6 FL (87-102); Mean Platelet Volume 11.7 FL (9.6-12.0); Monocytes % 11.4 % (1.7-12.7); Neutrophils % 64.3 % (38.7-73.9); Platelet Count 147 T/CUMM (130-400); Red Blood Count 4.03 MC/CUMM (3.8-5.5); Red Cell Distribution Width 15.6 % (9.3-17.3); White Blood Count 4.8 T/CUMM (4-12)
[2020-09-28 05:44] LABS: Calcium 8.6 MG/DL (8.5-10.1); Osmolality,Calculated 283.4 MOS/KG (273-304)
[2020-09-28 06:41] LABS: Hepatitis B Core IgM Quant < 0.05 Index; Hepatitis B Surface Ag Quant < 0.10 Index; Hepatitis B Surface Ag Result Negative (Negative); Hepatitis C Virus Ab Quant 0.31 Index; Hepatitis C Virus Ab Result Negative (Negative)
[2020-09-28] MEDS: INSULIN LISPRO 100 UNIT/ML SUBCUT SCH ×4 (07:25→21:39)
[2020-09-28] MEDS: LIDOCAINE 5% PATCH TRANSDERM SCH ×3 (08:41→20:29)
[2020-09-28] MEDS: ASCORBIC ACID 500 MG TABLET PO SCH ×2 (08:43→20:28)
[2020-09-28] MEDS: SACUBITRIL/VALSARTAN 49-51 MG TABLET PO SCH ×2 (08:43→20:26)
[2020-09-28] MEDS: ASPIRIN EC 81 MG TABLET PO SCH (08:43)
[2020-09-28] MEDS: CLOPIDOGREL 75 MG TABLET PO SCH (08:44)
[2020-09-28] MEDS: POTASSIUM CHLORIDE 20 MEQ/15 ML UDCUP PER TUBE PRN (08:44)
[2020-09-28] MEDS: FUROSEMIDE 40 MG/4 ML VIAL IV SCH (08:44)
[2020-09-28] MEDS: SPIRONOLACTONE 25 MG TABLET PO SCH (08:44)
[2020-09-28] MEDS: carvediloL 12.5 MG TABLET PO SCH ×2 (08:44→17:59)
[2020-09-28] MEDS: AMIODARONE 200 MG TABLET PO SCH ×2 (08:44→20:29)
[2020-09-28] MEDS ORDERED: POTASSIUM CHLORIDE 20 MEQ TABLET PO ONE (10:36)
[2020-09-28] MEDS: ENOXAPARIN 40 MG/0.4 ML SYRINGE SUBCUT SCH (17:59)
[2020-09-28] MEDS: ATORVASTATIN 40 MG TABLET PO SCH (20:28)
[2020-09-28] MEDS ORDERED: FAMOTIDINE 8 MG/ML 50 ML/BOTTLE PO SCH (21:00)
[2020-09-29 06:35] LABS: Basophils # 0.1 10*3/uL (0.0-0.2); Basophils % 1.4 % (0.0-0.8); Eosinophils # 0.3 10*3/uL (0.0-0.87); Eosinophils % 4.9 % (0.00-10.9); Hematocrit 33.5 VOL% (42.0-52.0); Hemoglobin 10.5 GM/DL (14.0-18.0); Immature Granulocytes % 0.7 %; Immature Granulocytes Absolute 0.04 #; Lymphocytes # 1.1 10*3/uL (1.4-4.0); Lymphocytes % 18.7 % (21.2-54.2); Mean Corpuscular HGB Conc 31.3 GM/DL (32-36); Mean Corpuscular Volume 80.3 FL (87-102); Mean Platelet Volume 11.6 FL (9.6-12.0); Monocytes % 8.6 % (1.7-12.7); Neutrophils % 65.7 % (38.7-73.9); Platelet Count 171 T/CUMM (130-400); Red Blood Count 4.17 MC/CUMM (3.8-5.5); Red Cell Distribution Width 15.6 % (9.3-17.3); White Blood Count 5.7 T/CUMM (4-12)
[2020-09-29 07:02] LABS: Calcium 8.4 MG/DL (8.5-10.1); Osmolality,Calculated 283.4 MOS/KG (273-304)
[2020-09-29 07:06] LABS: Albumin 2.6 G/DL (3.4-5.0); Bilirubin,Direct 0.41 MG/DL (0.0-0.20); Bilirubin,Indirect 0.9 MG/DL (0.0-1.0); Bilirubin,Total 1.3 MG/DL (0.2-1.0); Total Protein 6.9 G/DL (6.4-8.3)
[2020-09-29] MEDS: carvediloL 12.5 MG TABLET PO SCH ×2 (08:34→17:24)
[2020-09-29] MEDS: AMIODARONE 200 MG TABLET PO SCH ×2 (08:34→20:34)
[2020-09-29] MEDS: ASCORBIC ACID 500 MG TABLET PO SCH ×2 (08:34→20:33)
[2020-09-29] MEDS: SACUBITRIL/VALSARTAN 49-51 MG TABLET PO SCH ×2 (08:34→20:34)
[2020-09-29] MEDS: POTASSIUM CHLORIDE 20 MEQ TABLET PO SCH (08:34)
[2020-09-29] MEDS: SPIRONOLACTONE 25 MG TABLET PO SCH (08:35)
[2020-09-29] MEDS: FUROSEMIDE 40 MG TABLET PO SCH (08:35)
[2020-09-29] MEDS: CLOPIDOGREL 75 MG TABLET PO SCH (08:35)
[2020-09-29] MEDS: ASPIRIN EC 81 MG TABLET PO SCH (08:36)
[2020-09-29] MEDS: INSULIN LISPRO 100 UNIT/ML SUBCUT SCH ×4 (09:34→20:43)
[2020-09-29] MEDS: PANTOPRAZOLE 40 MG TABLET PO SCH ×2 (09:35→20:33)
[2020-09-29] MEDS: ALBUTEROL/IPRATROPIUM 3 ML NEB RESP TX SCH ×3 (11:00→20:15)
[2020-09-29] MEDS ORDERED: POTASSIUM CHLORIDE 20 MEQ TABLET PO ONE (11:49)
[2020-09-29] MEDS: ENOXAPARIN 40 MG/0.4 ML SYRINGE SUBCUT SCH (18:20)
[2020-09-29] MEDS: ATORVASTATIN 40 MG TABLET PO SCH (20:33)
[2020-09-29] MEDS: SERTRALINE 25 MG TABLET PO SCH (20:34)
[2020-09-29] MEDS: LIDOCAINE 5% PATCH TRANSDERM SCH (20:35)
[2020-09-29] MEDS: ACETAMINOPHEN 325 MG TABLET PO PRN (20:40)
[2020-09-30] MEDS: ALBUTEROL/IPRATROPIUM 3 ML NEB RESP TX SCH ×5 (00:01→14:53)
[2020-09-30 05:52] LABS: Basophils # 0.1 10*3/uL (0.0-0.2); Basophils % 1.2 % (0.0-0.8); Eosinophils # 0.3 10*3/uL (0.0-0.87); Hematocrit 32.9 VOL% (42.0-52.0); Hemoglobin 10.5 GM/DL (14.0-18.0); Immature Granulocytes % 0.7 %; Immature Granulocytes Absolute 0.04 #; Lymphocytes # 1.2 10*3/uL (1.4-4.0); Lymphocytes % 21.5 % (21.2-54.2); Mean Corpuscular HGB Conc 31.9 GM/DL (32-36); Mean Corpuscular Volume 79.9 FL (87-102); Mean Platelet Volume 11.6 FL (9.6-12.0); Monocytes % 9.7 % (1.7-12.7); Neutrophils % 61.9 % (38.7-73.9); Platelet Count 167 T/CUMM (130-400); Red Blood Count 4.12 MC/CUMM (3.8-5.5); Red Cell Distribution Width 15.7 % (9.3-17.3); White Blood Count 5.8 T/CUMM (4-12)
[2020-09-30 06:02] LABS: Calcium 8.5 MG/DL (8.5-10.1); Osmolality,Calculated 278.7 MOS/KG (273-304)
[2020-09-30 06:07] LABS: Albumin 2.6 G/DL (3.4-5.0); Bilirubin,Total 1.4 MG/DL (0.2-1.0); Calcium 8.5 MG/DL (8.5-10.1); Osmolality,Calculated 281.5 MOS/KG (273-304); Total Protein 6.8 G/DL (6.4-8.3)
[2020-09-30] MEDS: INSULIN LISPRO 100 UNIT/ML SUBCUT SCH ×4 (08:43→20:42)
[2020-09-30] MEDS: CLOPIDOGREL 75 MG TABLET PO SCH (08:48)
[2020-09-30] MEDS: POTASSIUM CHLORIDE 20 MEQ TABLET PO SCH (08:49)
[2020-09-30] MEDS: SACUBITRIL/VALSARTAN 49-51 MG TABLET PO SCH ×2 (08:49→20:38)
[2020-09-30] MEDS: FUROSEMIDE 40 MG TABLET PO SCH (08:49)
[2020-09-30] MEDS: AMIODARONE 200 MG TABLET PO SCH ×2 (08:49→20:38)
[2020-09-30] MEDS: PANTOPRAZOLE 40 MG TABLET PO SCH ×2 (08:49→20:40)
[2020-09-30] MEDS: SPIRONOLACTONE 25 MG TABLET PO SCH (08:49)
[2020-09-30] MEDS: ASCORBIC ACID 500 MG TABLET PO SCH ×2 (08:49→20:38)
[2020-09-30] MEDS: carvediloL 12.5 MG TABLET PO SCH ×2 (08:49→17:26)
[2020-09-30] MEDS: ASPIRIN EC 81 MG TABLET PO SCH (08:49)
[2020-09-30] MEDS ORDERED: METHOCARBAMOL 500 MG TABLET PO PRN (12:06)
[2020-09-30] MEDS: ACETAMINOPHEN 325 MG TABLET PO PRN (17:29)
[2020-09-30] MEDS: ENOXAPARIN 40 MG/0.4 ML SYRINGE SUBCUT SCH (18:19)
[2020-09-30] MEDS: ATORVASTATIN 40 MG TABLET PO SCH (20:39)
[2020-09-30] MEDS: SERTRALINE 25 MG TABLET PO SCH (20:40)
[2020-09-30] MEDS: LIDOCAINE 5% PATCH TRANSDERM SCH (20:40)
[2020-10-01] MEDS: ALUMINUM/MAGNES/SIMETH MAX STR 30 ML UDCUP PO PRN ×2 (02:14→08:52)
[2020-10-01 05:40] LABS: Basophils # 0.1 10*3/uL (0.0-0.2); Basophils % 1.3 % (0.0-0.8); Eosinophils # 0.3 10*3/uL (0.0-0.87); Eosinophils % 5.2 % (0.00-10.9); Hematocrit 32.5 VOL% (42.0-52.0); Hemoglobin 10.4 GM/DL (14.0-18.0); Immature Granulocytes % 0.6 %; Immature Granulocytes Absolute 0.04 #; Lymphocytes # 1.4 10*3/uL (1.4-4.0); Lymphocytes % 22.4 % (21.2-54.2); Mean Corpuscular Volume 79.1 FL (87-102); Mean Platelet Volume 11.1 FL (9.6-12.0); Monocytes % 9.4 % (1.7-12.7); Neutrophils % 61.1 % (38.7-73.9); Platelet Count 186 T/CUMM (130-400); Red Blood Count 4.11 MC/CUMM (3.8-5.5); Red Cell Distribution Width 15.8 % (9.3-17.3); White Blood Count 6.3 T/CUMM (4-12)
[2020-10-01 06:37] LABS: Albumin 2.8 G/DL (3.4-5.0); Calcium 8.7 MG/DL (8.5-10.1); Osmolality,Calculated 277.7 MOS/KG (273-304); Total Protein 6.9 G/DL (6.4-8.3)
[2020-10-01] MEDS ORDERED: MAGNESIUM SULF RIDER 2 GM in PREMIX 1 EACH IV ONE (08:01)
[2020-10-01] MEDS ORDERED: POTASSIUM CHLORIDE 20 MEQ TABLET PO ONE (08:01)
[2020-10-01 08:20] VITALS: BP 153/84
[2020-10-01] MEDS: SACUBITRIL/VALSARTAN 49-51 MG TABLET PO SCH (08:38)
[2020-10-01] MEDS: INSULIN LISPRO 100 UNIT/ML SUBCUT SCH (08:38)
[2020-10-01] MEDS: CLOPIDOGREL 75 MG TABLET PO SCH (08:39)
[2020-10-01] MEDS: FUROSEMIDE 40 MG TABLET PO SCH (08:39)
[2020-10-01] MEDS: SPIRONOLACTONE 25 MG TABLET PO SCH (08:39)
[2020-10-01] MEDS: ASPIRIN EC 81 MG TABLET PO SCH (08:39)
[2020-10-01] MEDS: PANTOPRAZOLE 40 MG TABLET PO SCH (08:39)
[2020-10-01] MEDS: ASCORBIC ACID 500 MG TABLET PO SCH (08:39)
[2020-10-01] MEDS: carvediloL 12.5 MG TABLET PO SCH (08:40)
[2020-10-01] MEDS: AMIODARONE 200 MG TABLET PO SCH (08:40)
[2020-10-01] MEDS: POTASSIUM CHLORIDE 20 MEQ TABLET PO SCH (10:44)
== END 2020-10-01 11:38 | disposition home health service (06) | DRG 246 ==
LOC: EDBD → EDUNIT# → N.ED 00:38 → N.ICU 01:32 → N.EDINP 01:39 → N.ICU 01:51 → N.TELES 09-26 10:56
PROVIDERS: ADMIT Internal Medicine Cardiovascular Disease; ATTEND Internal Medicine Cardiovascular Disease
PROC: CLCCHCL (ICD-10-PCS; 2020-09-22 01:45)